=== PATIENT | female | born 1975 | race Hispanic/Latino ===

== ENCOUNTER → 2019-01-01 | Day surgery (SDC) | payer OTHER ==
--- NOTE | 2018-12-31 17:38 | Diagnostic Imaging Report ---
Exam: Chest radiograph Clinical History: Preoperative clearance Findings: The cardiomediastinal silhouette and lungs are normal. The regional skeleton and soft tissue are unremarkable. There is no evidence of pleural effusion or pneumothorax. Impression: No radiographic evidence of acute cardiopulmonary disease. Signed by: Dr. Herb Luna MD on 12/31/2018 5:35 PM
[~2019-01-01] MED LIST: ACETAMINOPHEN 1000 MG/100 ML 100 ML IV ONE; BUPIVACAINE HCL 0.5% INJ 30 ML VIAL INJ ONE; CEFAZOLIN SOD 1 GM/NS 50ML 50 ML IV ONE; DEXAMETHASONE SOD PHOS INJ 4 MG/ML VIAL ONE; DUEXIS 800-26.1 EACH PO; FENTANYL CITRATE/PF 100MCG/2 ML INJ ONE; HYDROMORPHONE 1MG/1ML INJ ONE; KETOROLAC TROMETHAMINE 30 MG/ML VIAL ONE; LIDOCAINE HCL 2% LOCAL INJ 5 ML SDV VIAL INJ ONE; METOPROLOL SUCC25 MG PO; MIDAZOLAM HCL 2 MG/2 ML VIAL ONE; NAPROXEN500 MG PO; NORCO 5-325 TA1 EACH PO; ONDANSETRON HCL INJ 2MG/ML 2ML 2 MG/ML VIAL ONE; PROPOFOL IV EMULSION 10 MG/ML 20 ML VIAL ONE; SEVOFLURANE INHAL SOLN 250 ML PEN BTL ONE
--- OUTSIDE RECORDS SUMMARY | 2019-01-01 05:10 | XMS REPORT | Continuity of Care Document ---
Author Author [employer] Direct Address Unknown Phone Unavailable Care Team Providers Care Electrical Subcontractor Name Role Phone [employer] Information fluid Operations Unavailable Unavailable Problems Problem Status Onset Date Classification Date Reported Comments Source R10.2 Active 10/05/2018 [facility] Radiculopathy, lumbosacral region 05/15/2018 05/17/2018 [facility] Other spondylosis, lumbosacral region 12/05/2017 12/07/2017 [facility] 2ND NIGHT - 19644 Active 08/01/2017 [facility] Other intervertebral disc displacement, lumbosacral region 02/07/2017 02/09/2017 [facility] FIRST [id number] Active 10/28/2016 [facility] Sacroiliitis, not elsewhere classified 03/23/2017 [facility] Anxiety (finding) Active Problem 06/09/2018 pt mother [place] and has cancer [facility] Backache (finding) Active Problem 06/09/2018 sacrioliac joint [facility] Sleep apnea (finding) Active Problem 06/09/2018 pt has not received a cpap machine does not have cpap machine still does not have a cpap machine Pt was recently diagnosed and does not have a cpap machine yet [facility] Low back pain 06/09/2018 [facility] Acid reflux (finding) Active Problem 06/09/2018 [facility] Gastroesophageal reflux disease (disorder) Active Problem 06/09/2018 [facility] Lumbar spondylosis (disorder) Active Problem 06/09/2018 [facility] Medications Medication Details Route Status Patient Instructions Ordering Provider Order Date Source Misc Medication 150 mL, Soln-IV, IV, Once, first dose 05/15/18 14:13:00 BRANCH CUSTOMER SERVICE REPRESENTATIVE, stop date 05/15/18 14:13:00 BRANCH CUSTOMER SERVICE REPRESENTATIVE Inactive 05/15/2018 [facility] Promethazine 12.5 mg=0.5 mL, Injection, IM, Once PRN for vomiting, first dose 05/15/18 14:08:00 BRANCH CUSTOMER SERVICE REPRESENTATIVE Inactive 05/15/2018 [facility] Diphenhydramine 25 mg=0.5 mL, Injection, IV Push, Once PRN for itching, first dose 05/15/18 14:08:00 BRANCH CUSTOMER SERVICE REPRESENTATIVE Inactive 05/15/2018 [facility] Ondansetron 4 mg=2 mL, Injection, IV Push, q15min PRN for nausea, order duration: 2 doses, first dose 05/15/18 14:08:00 BRANCH CUSTOMER SERVICE REPRESENTATIVE, stop date Limited # of times Inactive 05/15/2018 [facility] Levalbuterol 0.21 MG/ML Inhalant Solution [Xopenex] 0.63 mg=3 mL, Soln, NEB, Once PRN for wheezing, first dose 05/15/18 14:08:00 BRANCH CUSTOMER SERVICE REPRESENTATIVE Inactive 05/15/2018 [facility] Saline Lock Flush 10 mL, Soln, IV Push, As Indicated PRN for flush, first dose 05/15/18 14:08:00 BRANCH CUSTOMER SERVICE REPRESENTATIVE Inactive 05/15/2018 [facility] LR 1,000 mL 1,000 mL, IV, 75 mL/hr, start date 05/15/18 14:08:00 BRANCH CUSTOMER SERVICE REPRESENTATIVE Inactive 05/15/2018 [facility] midazolam 1 mg=1 mL, Injection, IV, Once, first dose 05/15/18 14:04:00 BRANCH CUSTOMER SERVICE REPRESENTATIVE, stop date 05/15/18 14:04:00 BRANCH CUSTOMER SERVICE REPRESENTATIVE Inactive 05/15/2018 [facility] midazolam 1 mg=1 mL, Injection, IV, Once, first dose 05/15/18 14:01:00 BRANCH CUSTOMER SERVICE REPRESENTATIVE, stop date 05/15/18 14:01:00 BRANCH CUSTOMER SERVICE REPRESENTATIVE Inactive 05/15/2018 [facility] midazolam 1 mg=1 mL, Injection, IV, Once, first dose 05/15/18 13:57:00 BRANCH CUSTOMER SERVICE REPRESENTATIVE, stop date 05/15/18 13:57:00 BRANCH CUSTOMER SERVICE REPRESENTATIVE Inactive 05/15/2018 [facility] fentaNYL 50 mcg=1 mL, Injection, IV, Once, first dose 05/15/18 13:57:00 BRANCH CUSTOMER SERVICE REPRESENTATIVE, stop date 05/15/18 13:57:00 BRANCH CUSTOMER SERVICE REPRESENTATIVE Inactive 05/15/2018 [facility] midazolam 1 mg=1 mL, Injection, IV, Once, first dose 05/15/18 13:52:00 BRANCH CUSTOMER SERVICE REPRESENTATIVE, stop date 05/15/18 13:52:00 BRANCH CUSTOMER SERVICE REPRESENTATIVE Inactive 05/15/2018 [facility] fentaNYL 50 mcg=1 mL, Injection, IV, Once, first dose 05/15/18 13:52:00 BRANCH CUSTOMER SERVICE REPRESENTATIVE, stop date 05/15/18 13:52:00 BRANCH CUSTOMER SERVICE REPRESENTATIVE Inactive 05/15/2018 [facility] Lidocaine 2% 0.2 mL IV Start [[place]] 0.2 mL, Injection, Subcutaneous, Once PRN for other (see comment), first dose 05/15/18 12:58:00 BRANCH CUSTOMER SERVICE REPRESENTATIVE Inactive 05/15/2018 [facility] LR 1,000 mL 1,000 mL, IV, 30 mL/hr, start date 05/15/18 12:58:00 BRANCH CUSTOMER SERVICE REPRESENTATIVE Inactive 05/15/2018 [facility] Pepcid 20 mg, Oral, Daily Active 05/11/2018 [facility] Cyclobenzaprine hydrochloride 10 MG Oral Tablet [Flexeril] 10 mg=1 tabs, Oral, As Indicated, PRN for spasm, # 30 tabs, muscle spasm Active 05/11/2018 [facility] terbinafine 250 MG Oral Tablet 250 mg=1 tabs, Oral, Daily, toenail fungus Active 05/11/2018 [facility] LR 1,000 mL 1,000 mL, IV, 75 mL/hr, start date 12/05/17 13:40:00 CDT Inactive 12/05/2017 [facility] Saline Lock Flush 10 mL, Soln, IV Push, As Indicated PRN for flush, first dose 12/05/17 13:40:00 CDT Inactive 12/05/2017 [facility] Misc Medication 200 mL, Soln-IV, IV, Once, first dose 12/05/17 13:38:00 CDT, stop date 12/05/17 13:38:00 CDT Inactive 12/05/2017 [facility] propofol 50 mg=5 mL, Emulsion, IV, Once, first dose 12/05/17 13:26:00 CDT, stop date 12/05/17 13:26:00 CDT Inactive 12/05/2017 [facility] propofol 50 mg=5 mL, Emulsion, IV, Once, first dose 12/05/17 13:20:00 CDT, stop date 12/05/17 13:20:00 CDT Inactive 12/05/2017 [facility] propofol 50 mg=5 mL, Emulsion, IV, Once, first dose 12/05/17 13:11:00 CDT, stop date 12/05/17 13:11:00 CDT Inactive 12/05/2017 [facility] propofol 50 mg=5 mL, Emulsion, IV, Once, first dose 12/05/17 13:06:00 CDT, stop date 12/05/17 13:06:00 CDT Inactive 12/05/2017 [facility] lidocaine 3 mL, Injection, IV, Once, first dose 12/05/17 13:06:00 CDT, stop date 12/05/17 13:06:00 CDT Inactive 12/05/2017 [facility] fentaNYL 50 mcg=1 mL, Injection, IV, Once, first dose 12/05/17 13:05:00 CDT, stop date 12/05/17 13:05:00 CDT Inactive 12/05/2017 [facility] midazolam 2 mg=2 mL, Injection, IV, Once, first dose 12/05/17 13:05:00 CDT, stop date 12/05/17 13:05:00 CDT Inactive 12/05/2017 [facility] fentaNYL 50 mcg=1 mL, Injection, IV, Once, first dose 12/05/17 12:59:00 CDT, stop date 12/05/17 12:59:00 CDT Inactive 12/05/2017 [facility] midazolam 3 mg=3 mL, Injection, IV, Once, first dose 12/05/17 12:59:00 CDT, stop date 12/05/17 12:59:00 CDT Inactive 12/05/2017 [facility] Lidocaine 2% 0.2 mL IV Start [[place]] 0.2 mL, Injection, Subcutaneous, Once PRN for other (see comment), first dose 12/05/17 12:17:00 CDT Inactive 12/05/2017 [facility] LR 1,000 mL 1,000 mL, IV, 30 mL/hr, start date 12/05/17 12:17:00 CDT Inactive 12/05/2017 [facility] Misc Medication 300 mL, Soln-IV, IV, Once, first dose 09/19/17 13:23:00 CDT, stop date 09/19/17 13:23:00 CDT Inactive 09/19/2017 [facility] midazolam 1 mg=1 mL, Injection, IV, Once, first dose 09/19/17 13:13:00 CDT, stop date 09/19/17 13:13:00 CDT Inactive 09/19/2017 [facility] midazolam 1 mg=1 mL, Injection, IV, Once, first dose 09/19/17 13:09:00 CDT, stop date 09/19/17 13:09:00 CDT Inactive 09/19/2017 [facility] midazolam 1 mg=1 mL, Injection, IV, Once, first dose 09/19/17 13:00:00 CDT, stop date 09/19/17 13:00:00 CDT Inactive 09/19/2017 [facility] midazolam 1 mg=1 mL, Injection, IV, Once, first dose 09/19/17 12:49:00 CDT, stop date 09/19/17 12:49:00 CDT Inactive 09/19/2017 [facility] Doxycycline Monohydrate 100 MG Oral Capsule 100 mg=1 caps, Oral, BID, 0 Refill(s) No Longer Active 09/19/2017 [facility] celecoxib 200 MG Oral Capsule [Celebrex] 200 mg=1 caps, Oral, Daily, 0 Refill(s) Active 09/19/2017 [facility] Lidocaine 2% 0.2 mL IV Start [[place]] 0.2 mL, Injection, Subcutaneous, Once PRN for other (see comment), first dose 09/19/17 11:45:00 CDT Inactive 09/19/2017 [facility] LR 1,000 mL 1,000 mL, IV, 30 mL/hr, start date 09/19/17 11:45:00 CDT Inactive 09/19/2017 [facility] LR 1,000 mL 1,000 mL, IV, 75 mL/hr, start date 08/22/17 13:15:00 CDT Inactive 08/22/2017 [facility] Saline Lock Flush 10 mL, Soln, IV Push, As Indicated PRN for flush, first dose 08/22/17 13:15:00 CDT Inactive 08/22/2017 [facility] Dilaudid 0.5 mg=0.5 mL, Injection, IV Push, q10min PRN for pain severe (7-10), first dose 08/22/17 13:15:00 CDT Inactive 08/22/2017 [facility] Misc Medication 300 mL, Soln-IV, IV, Once, first dose 08/22/17 12:46:00 CDT, stop date 08/22/17 12:46:00 CDT Inactive 08/22/2017 [facility] propofol 30 mg=3 mL, Emulsion, IV, Once, first dose 08/22/17 12:37:00 CDT, stop date 08/22/17 12:37:00 CDT Inactive 08/22/2017 [facility] lidocaine 1 mL, Injection, IV, Once, first dose 08/22/17 12:37:00 CDT, stop date 08/22/17 12:37:00 CDT Inactive 08/22/2017 [facility] midazolam 1 mg=1 mL, Injection, IV, Once, first dose 08/22/17 12:37:00 CDT, stop date 08/22/17 12:37:00 CDT Inactive 08/22/2017 [facility] midazolam 2 mg=2 mL, Injection, IV, Once, first dose 08/22/17 12:33:00 CDT, stop date 08/22/17 12:33:00 CDT Inactive 08/22/2017 [facility] midazolam 2 mg=2 mL, Injection, IV, Once, first dose 08/22/17 12:30:00 CDT, stop date 08/22/17 12:30:00 CDT Inactive 08/22/2017 [facility] LR 1,000 mL 1,000 mL, IV, 30 mL/hr, start date 08/22/17 10:56:00 CDT Inactive 08/22/2017 [facility] Lidocaine 2% 0.2 mL IV Start [[place]] 0.2 mL, Injection, Subcutaneous, Once PRN for other (see comment), first dose 08/22/17 10:56:00 CDT Inactive 08/22/2017 [facility] 24 HR Naproxen 500 MG Extended Release Tablet 500 mg=1 tabs, Oral, As Indicated, PRN for pain, Back Pain Active 08/18/2017 [facility] Sucralfate 1000 MG Oral Tablet [Carafate] 1 gm=1 tabs, Oral, BID, GERD No Longer Active 08/18/2017 [facility] Omeprazole 40 MG Enteric Coated Capsule 40 mg=1 caps, Oral, Daily, Acide Reflux Active 08/18/2017 [facility] Diphenhydramine 25 mg=0.5 mL, Injection, IV Push, Once PRN for itching, first dose 03/21/17 12:16:00 BRANCH CUSTOMER SERVICE REPRESENTATIVE Inactive 03/21/2017 [facility] Promethazine 12.5 mg=0.5 mL, Injection, IM, Once PRN for severe nausea, first dose 03/21/17 12:16:00 BRANCH CUSTOMER SERVICE REPRESENTATIVE Inactive 03/21/2017 [facility] LR 1,000 mL 1,000 mL, IV, 75 mL/hr, start date 03/21/17 12:16:00 BRANCH CUSTOMER SERVICE REPRESENTATIVE Inactive 03/21/2017 [facility] Saline Lock Flush 10 mL, Soln, IV Push, As Indicated PRN for flush, first dose 03/21/17 12:16:00 BRANCH CUSTOMER SERVICE REPRESENTATIVE Inactive 03/21/2017 [facility] Ondansetron 4 mg=2 mL, Injection, IV Push, q15min PRN for nausea/vomiting, order duration: 2 doses, first dose 03/21/17 12:16:00 BRANCH CUSTOMER SERVICE REPRESENTATIVE, stop date Limited # of times Inactive 03/21/2017 [facility] Misc Medication 500 mL, Soln-IV, IV, Once, first dose 03/21/17 12:09:00 BRANCH CUSTOMER SERVICE REPRESENTATIVE, stop date 03/21/17 12:09:00 BRANCH CUSTOMER SERVICE REPRESENTATIVE Inactive 03/21/2017 [facility] midazolam 2 mg=2 mL, Injection, IV, Once, first dose 03/21/17 12:01:00 BRANCH CUSTOMER SERVICE REPRESENTATIVE, stop date 03/21/17 12:01:00 BRANCH CUSTOMER SERVICE REPRESENTATIVE Inactive 03/21/2017 [facility] midazolam 1 mg=1 mL, Injection, IV, Once, first dose 03/21/17 11:58:00 BRANCH CUSTOMER SERVICE REPRESENTATIVE, stop date 03/21/17 11:58:00 BRANCH CUSTOMER SERVICE REPRESENTATIVE Inactive 03/21/2017 [facility] fentaNYL 50 mcg=1 mL, Injection, IV, Once, first dose 03/21/17 11:58:00 BRANCH CUSTOMER SERVICE REPRESENTATIVE, stop date 03/21/17 11:58:00 BRANCH CUSTOMER SERVICE REPRESENTATIVE Inactive 03/21/2017 [facility] midazolam 1 mg=1 mL, Injection, IV, Once, first dose 03/21/17 11:55:00 BRANCH CUSTOMER SERVICE REPRESENTATIVE, stop date 03/21/17 11:55:00 BRANCH CUSTOMER SERVICE REPRESENTATIVE Inactive 03/21/2017 [facility] fentaNYL 50 mcg=1 mL, Injection, IV, Once, first dose 03/21/17 11:55:00 BRANCH CUSTOMER SERVICE REPRESENTATIVE, stop date 03/21/17 11:55:00 BRANCH CUSTOMER SERVICE REPRESENTATIVE Inactive 03/21/2017 [facility] Cyclobenzaprine hydrochloride 10 MG Oral Tablet 10 mg=1 tabs, Oral, As Indicated, PRN for spasm, # 30 tabs, 0 Refill(s) No Longer Active 03/21/2017 [facility] Lidocaine 2% 0.2 mL IV Start [[place]] 0.2 mL, Injection, Subcutaneous, Once PRN for other (see comment), first dose 03/21/17 10:20:00 BRANCH CUSTOMER SERVICE REPRESENTATIVE Inactive 03/21/2017 [facility] LR 1,000 mL 1,000 mL, IV, 30 mL/hr, start date 03/21/17 10:20:00 BRANCH CUSTOMER SERVICE REPRESENTATIVE Inactive 03/21/2017 [facility] Vitamin D2 50,000 IntUnit, Oral, qThursday, 0 Refill(s), supplement No Longer Active 03/10/2017 [facility] steroid pack steroid pack, See Instructions, Pt inst by Dr Price to start steroid pack on 02-08-17, 0 Refill(s), sacroiliac joint pain No Longer Active 03/10/2017 [facility] Saline Lock Flush 10 mL, Soln, IV Push, As Indicated PRN for flush, first dose 02/07/17 11:38:00 CDT Inactive 02/07/2017 [facility] LR 1,000 mL 1,000 mL, IV, 75 mL/hr, start date 02/07/17 11:38:00 CDT Inactive 02/07/2017 [facility] Ondansetron 4 mg=2 mL, Injection, IV Push, q15min PRN for nausea/vomiting, order duration: 2 doses, first dose 02/07/17 11:38:00 CDT, stop date Limited # of times Inactive 02/07/2017 [facility] Promethazine 12.5 mg=0.5 mL, Injection, IM, Once PRN for severe nausea, first dose 02/07/17 11:38:00 CDT Inactive 02/07/2017 [facility] Diphenhydramine 25 mg=0.5 mL, Injection, IV Push, Once PRN for itching, first dose 02/07/17 11:38:00 CDT Inactive 02/07/2017 [facility] Misc Medication 300 mL, Soln-IV, IV, Once, first dose 02/07/17 11:31:00 CDT, stop date 02/07/17 11:31:00 CDT Inactive 02/07/2017 [facility] fentaNYL 50 mcg=1 mL, Injection, IV, Once, first dose 02/07/17 11:18:00 CDT, stop date 02/07/17 11:18:00 CDT Inactive 02/07/2017 [facility] midazolam 1 mg=1 mL, Injection, IV, Once, first dose 02/07/17 11:18:00 CDT, stop date 02/07/17 11:18:00 CDT Inactive 02/07/2017 [facility] fentaNYL 50 mcg=1 mL, Injection, IV, Once, first dose 02/07/17 11:13:00 CDT, stop date 02/07/17 11:13:00 CDT Inactive 02/07/2017 [facility] midazolam 1 mg=1 mL, Injection, IV, Once, first dose 02/07/17 11:13:00 CDT, stop date 02/07/17 11:13:00 CDT Inactive 02/07/2017 [facility] Lidocaine 2% 0.2 mL IV Start [[facility]] 0.2 mL, Injection, Subcutaneous, Once PRN for other (see comment), first dose 02/07/17 11:09:00 CDT Inactive 02/07/2017 [facility] LR 1,000 mL 1,000 mL, IV, 30 mL/hr, start date 02/07/17 11:09:00 CDT Inactive 02/07/2017 [facility] meloxicam 7.5 MG Oral Tablet 7.5 mg=1 tabs, Oral, Daily, 0 Refill(s), pain No Longer Active 01/27/2017 [facility] Cyclobenzaprine hydrochloride 10 MG Oral Tablet 10 mg=1 tabs, Oral, TID, PRN for spasm, # 30 tabs, 0 Refill(s), pain No Longer Active 01/27/2017 [facility] Acetaminophen 325 MG / Hydrocodone Bitartrate 10 MG Oral Tablet [[place] 10/325] 1 tabs, Oral, q6hr, PRN as needed for pain, 0 Refill(s), pain No Longer Active 01/27/2017 [facility] gabapentin 300 MG Oral Capsule 300 mg=1 caps, Oral, TID, 0 Refill(s), pain No Longer Active 01/27/2017 [facility] Allergies, Adverse Reactions, Alerts Substance Category Reaction Severity Reaction type Status Date Reported Comments Source traMADol Assertion Numbness of face (finding) Drug allergy Active [facility] No Known Medication Allergies Assertion Drug allergy [facility] Immunizations No Data Provided for This Section Results Order Name Results Value Reference Range Date Interpretation Comments Source LABORATORY urine beta hcg Negative, Control Present (05/15/18 1:04 PM) 05/15/2018 [facility] LABORATORY urine beta hcg Negative, Control Present (12/05/17 12:25 PM) 12/05/2017 [facility] LABORATORY urine beta hcg Negative, Control Present (09/19/17 11:45 AM) 09/19/2017 [facility] LABORATORY urine beta hcg Negative, Control Present (08/22/17 11:20 AM) 08/22/2017 [facility] LABORATORY urine beta hcg Negative, Control Present (03/21/17 10:43 AM) 03/21/2017 [facility] Reports No Data Provided for This Section Diagnostic Reports Report Value Date Source Pelvis w Pelvis Transvaginal US Patient Name: ESPERANZA MILLIGAN : 1975; Age: 43 years Female MR: [id number] Study: Pelvis w Pelvis Transvaginal US 10/16/2018 11:44 CDT Clinical Indication: - pelvic pain. COMPARISON: None US PELVIS Technique: Grayscale, color and Doppler transabdominal and transvaginal imaging of the pelvis was performed with standard technique. Endovaginal imaging was used for better evaluation of the endometrium and adnexal regions. Last menstrual period is 09/09/2018. FINDINGS: TRANSABDOMINAL AND ENDOVAGINAL PELVIC ULTRASOUND: UTERUS: The transabdominal pelvic ultrasound evaluation of the uterus demonstrates that the anteverted uterus measures 10.4 x 4.1 x 4.4 cm in size. The endometrial stripe measures 8 mm in thickness. There are nabothian cysts. OVARIES: The sonographic images demonstrate that the right ovary measures 3.1 x 2.4 x 2.8 cm and the left ovary measures 3.4 x 1.7 x 2.1 cm. There is a right ovarian simple cyst measuring 1.6 cm. Small left follicles. There are no adnexal masses. The Doppler images show normal bilateral ovarian blood flow. OTHER FINDINGS: The sonographic images demonstrate no free fluid in the pelvic cul-de-sac. IMPRESSION: Normal pelvic and transvaginal ultrasound. SL: [id number] 10/16/2018 [facility] Breast Mammo Scrn YAO incl CAD MA BILATERAL DIGITAL SCREENING MAMMOGRAM WITH CAD: 10/16/2018 CLINICAL: /Routine. Current study was evaluated with a Computer Aided Detection (CAD) system. COMPARISON:Exam is read without the benefit of comparison films. Facility where the patient states her prior mammograms were performed are outside of the [place] TECHNIQUE: Mammographic views were obtained using digital acquisition. [employer] Version 1.3 was utilized for computer aided detection. FINDINGS: The tissue of both breasts is heterogeneously dense, which could obscure detection of small masses. Benign appearing densities are noted in both breasts. There are benign calcifications in the left breast. No significant masses, calcifications, or other findings are seen in either breast. IMPRESSION: BENIGN RECOMMENDATION:There is no mammographic evidence of malignancy. A 1 year screening mammogram is recommended.(10/17/2019) SUMMARY: Prior mammograms would be of added benefit to document half-way stability. This aids in establishing benignity. The patient should make additional efforts to locate her prior exams. An addendum will be made if additional films are provided. This exam was interpreted at [id number] for [facility]. Mychal de luna/andi:10/16/2018 11:33:18 Machine Precision Etcher(s): Myra Sunshine, [facility] letter sent: BI-RADS 1/2 Dense Mammogram BI-RADS: 2 Benign 10/16/2018 [facility] Consultation Notes No Data Provided for This Section Discharge Summaries No Data Provided for This Section History and Physicals No Data Provided for This Section Vital Signs Vital Sign Value Date Comments Source Peripheral Pulse Rate 87 05/15/2018 [facility] Systolic (mm Hg) 115 05/15/2018 [facility] Diastolic (mm Hg) 77 05/15/2018 [facility] Respitory Rate 18 05/15/2018 [facility] Systolic (mm Hg) 111 05/15/2018 [facility] Diastolic (mm Hg) 72 05/15/2018 [facility] Respitory Rate 16 05/15/2018 [facility] Heart Rate 91 05/15/2018 [facility] Systolic (mm Hg) 116 05/15/2018 [facility] Diastolic (mm Hg) 76 05/15/2018 [facility] Respitory Rate 16 05/15/2018 [facility] Heart Rate 81 05/15/2018 [facility] Temperature Oral (F) 36.7 Margret 05/15/2018 [facility] Heart Rate 86 05/15/2018 [facility] Temperature Oral (F) 37 Marrget 05/15/2018 [facility] Weight Measured 75.37 05/15/2018 [facility] Height 157 cm 05/15/2018 [facility] Peripheral Pulse Rate 90 05/15/2018 [facility] Height 157 cm 05/11/2018 [facility] Weight Measured 75.3 05/11/2018 [facility] Systolic (mm Hg) 120 12/05/2017 [facility] Diastolic (mm Hg) 57 12/05/2017 [facility] Peripheral Pulse Rate 78 12/05/2017 [facility] Respitory Rate 20 12/05/2017 [facility] Systolic (mm Hg) 119 12/05/2017 [facility] Diastolic (mm Hg) 57 12/05/2017 [facility] Respitory Rate 20 12/05/2017 [facility] Heart Rate 76 12/05/2017 [facility] Systolic (mm Hg) 114 12/05/2017 [facility] Diastolic (mm Hg) 64 12/05/2017 [facility] Respitory Rate 16 12/05/2017 [facility] Heart Rate 77 12/05/2017 [facility] Heart Rate 98 12/05/2017 [facility] Temperature Oral (F) 36.6 Margret 12/05/2017 [facility] Weight Measured 75.3 12/05/2017 [facility] Height 157 cm 12/05/2017 [facility] Temperature Oral (F) 37 Margret 12/05/2017 [facility] Peripheral Pulse Rate 79 12/05/2017 [facility] Height 157 cm 12/01/2017 [facility] Weight Measured 75.3 12/01/2017 [facility] Peripheral Pulse Rate 95 09/19/2017 [facility] Respitory Rate 16 09/19/2017 [facility] Systolic (mm Hg) 115 09/19/2017 [facility] Diastolic (mm Hg) 74 09/19/2017 [facility] Heart Rate 90 09/19/2017 [facility] Respitory Rate 17 09/19/2017 [facility] Systolic (mm Hg) 118 09/19/2017 [facility] Diastolic (mm Hg) 75 09/19/2017 [facility] Systolic (mm Hg) 118 09/19/2017 [facility] Diastolic (mm Hg) 73 09/19/2017 [facility] Respitory Rate 24 09/19/2017 [facility] Heart Rate 80 09/19/2017 [facility] Heart Rate 80 09/19/2017 [facility] Temperature Oral (F) 36.5 Margret 09/19/2017 [facility] Peripheral Pulse Rate 85 09/19/2017 [facility] Temperature Oral (F) 37.0 Margret 09/19/2017 [facility] Height 157 cm 09/19/2017 [facility] Weight Measured 75.3 09/19/2017 [facility] Weight Measured 75.3 09/15/2017 [facility] Height 157 cm 09/15/2017 [facility] Respitory Rate 16 08/22/2017 [facility] Peripheral Pulse Rate 86 08/22/2017 [facility] Systolic (mm Hg) 125 08/22/2017 [facility] Diastolic (mm Hg) 81 08/22/2017 [facility] Respitory Rate 16 08/22/2017 [facility] Heart Rate 90 08/22/2017 [facility] Systolic (mm Hg) 130 08/22/2017 [facility] Diastolic (mm Hg) 78 08/22/2017 [facility] Systolic (mm Hg) 122 08/22/2017 [facility] Diastolic (mm Hg) 78 08/22/2017 [facility] Heart Rate 97 08/22/2017 [facility] Respitory Rate 16 08/22/2017 [facility] Heart Rate 100 08/22/2017 [facility] Temperature Oral (F) 36.9 Margret 08/22/2017 [facility] Temperature Oral (F) 36.8 Margret 08/22/2017 [facility] Weight Measured 75.3 08/22/2017 [facility] Height 157 cm 08/22/2017 [facility] Peripheral Pulse Rate 89 08/22/2017 [facility] Height 157 cm 08/18/2017 [facility] Weight Measured 75.30 08/18/2017 [facility] Respitory Rate 17 03/21/2017 [facility] Systolic (mm Hg) 127 03/21/2017 [facility] Diastolic (mm Hg) 77 03/21/2017 [facility] Peripheral Pulse Rate 81 03/21/2017 [facility] Systolic (mm Hg) 135 03/21/2017 [facility] Diastolic (mm Hg) 87 03/21/2017 [facility] Heart Rate 87 03/21/2017 [facility] Respitory Rate 14 03/21/2017 [facility] Respitory Rate 12 03/21/2017 [facility] Heart Rate 86 03/21/2017 [facility] Systolic (mm Hg) 134 03/21/2017 [facility] Diastolic (mm Hg) 85 03/21/2017 [facility] Temperature Oral (F) 36.7 Margret 03/21/2017 [facility] Heart Rate 92 03/21/2017 [facility] Weight Measured 77.2 03/21/2017 [facility] Peripheral Pulse Rate 84 03/21/2017 [facility] Temperature Oral (F) 36.7 Margret 03/21/2017 [facility] Height 157 cm 03/21/2017 [facility] Height 157 cm 03/10/2017 [facility] Weight Measured 77.2 03/10/2017 [facility] Respitory Rate 16 02/07/2017 [facility] Systolic (mm Hg) 119 02/07/2017 [facility] Diastolic (mm Hg) 75 02/07/2017 [facility] Heart Rate 89 02/07/2017 [facility] Heart Rate 87 02/07/2017 [facility] Systolic (mm Hg) 128 02/07/2017 [facility] Diastolic (mm Hg) 75 02/07/2017 [facility] Respitory Rate 16 02/07/2017 [facility] Respitory Rate 16 02/07/2017 [facility] Systolic (mm Hg) 130 02/07/2017 [facility] Diastolic (mm Hg) 81 02/07/2017 [facility] Heart Rate 98 02/07/2017 [facility] Temperature Oral (F) 36.8 Margret 02/07/2017 [facility] Height 157 cm 02/07/2017 [facility] Peripheral Pulse Rate 98 02/07/2017 [facility] Temperature Oral (F) 37 Margret 02/07/2017 [facility] Weight Measured 77.2 02/07/2017 [facility] Height 157 cm 01/27/2017 [facility] Weight Measured 77.2 01/27/2017 [facility] Encounters Location Location Details Encounter Type Encounter Number Reason For Visit Attending Provider ADM Date DC Date Status Source [facility] Outpatient [id number] Rosa Albert 02/07/2017 02/07/2017 [facility] Outpatient [id number] Rosa Albert 02/07/2017 02/07/2017 [facility] Outpatient [id number] Rosa Albert 03/21/2017 03/21/2017 Discharged [facility] Outpatient [id number] Rosa Albert 03/21/2017 03/21/2017 [facility] Outpatient [id number] Carter Gotti 08/10/2017 08/10/2017 [facility] Outpatient [id number] Rosa Albert 08/22/2017 08/22/2017 Discharged [facility] Outpatient [id number] Rosa Albert 08/22/2017 08/22/2017 [facility] Outpatient [id number] Rosa Albert 09/19/2017 09/19/2017 Active [facility] Outpatient [id number] Rosa Ablert 09/19/2017 09/19/2017 [facility] Outpatient [id number] Rosa Albert 12/05/2017 12/05/2017 Active [facility] Outpatient [id number] Rosa Albert 12/05/2017 12/05/2017 [facility] Outpatient [id number] Rosa Albert 05/15/2018 05/15/2018 Active [facility] Outpatient [id number] Rosa Albert 05/15/2018 05/15/2018 [facility] Outpatient [id number] Wendyammad Etminan 06/07/2018 06/07/2018 [facility] [facility] [id number] Mohammad Etminan 06/07/2018 06/08/2018 [facility] Outpatient [id number] Christiana Amayaambi 10/16/2018 10/17/2018 [facility] Procedures Procedure Code Date Perfomer Comments Source INJ.CATH PLACE OF DIAG/THERA.SUBSTANCE EPIDURAL OR SUBARACHNOID LUMBAR/SACRAL 92380 (Right)<sup>1</sup> 05/15/2018 auto-populated from documented surgical case [facility] DESTRUCTION BY NEUROLYTIC AGENT PARAVERTEBRAL FACET JT NERVE W/ IMAGE LUMB/SACRAL EACH 61501 (Left)<sup>1</sup> 12/05/2017 auto-populated from documented surgical case [facility] DESTRUCTION BY NEUROLYTIC AGT PARARVERT FACET JT W/IMAGE LUM/SAC SINGLE JT 30529 (Left, L5, S1)<sup>2</sup> 12/05/2017 auto-populated from documented surgical case [facility] FLUOROSCOPIC GUIDANCE AND LOCALIZATION OF NEEDLE OR CATHETER TIP; SPINE INJ. 07754 (Left)<sup>3</sup> 12/05/2017 auto-populated from documented surgical case [facility] FLUOROSCOPIC GUIDANCE AND LOCALIZATION OF NEEDLE OR CATHETER TIP; SPINE INJ. 73949 (Left)<sup>1</sup> 09/19/2017 auto-populated from documented surgical case [facility] INJ DIAG/THERAPEUTIC AGENT PARAVERTEBRAL FACET JOINT W/ IMAGE GUIDANCE LUMBAR/SACRAL 2ND LEVEL 73322 (Left)<sup>2</sup> 09/19/2017 auto-populated from documented surgical case [facility] INJ DIAGNOSTIC/THERAPEUTIC AGENT PARAVERTEBRAL FACET JOINT W/ IMAGE GUIDANCE LUMBAR/SACRAL 76129 (Left)<sup>3</sup> 09/19/2017 auto-populated from documented surgical case [facility] INJECTION DIAGNOSTIC OR THERAPEUTIC AGENT W/ IMAGE GUIDANCE LUMBAR/SACRAL 3RD LEVEL 26513 (Left)<sup>4</sup> 09/19/2017 auto-populated from documented surgical case [facility] FLUOROSCOPIC GUIDANCE AND LOCALIZATION OF NEEDLE OR CATHETER TIP; SPINE INJ. 88151 (Right)<sup>1</sup> 08/22/2017 auto-populated from documented surgical case [facility] INJ DIAG/THERAPEUTIC AGENT PARAVERTEBRAL FACET JOINT W/ IMAGE GUIDANCE LUMBAR/SACRAL 2ND LEVEL 11339 (Right)<sup>2</sup> 08/22/2017 auto-populated from documented surgical case [facility] INJ DIAGNOSTIC/THERAPEUTIC AGENT PARAVERTEBRAL FACET JOINT W/ IMAGE GUIDANCE LUMBAR/SACRAL 33896 (Right)<sup>3</sup> 08/22/2017 auto-populated from documented surgical case [facility] INJECTION DIAGNOSTIC OR THERAPEUTIC AGENT W/ IMAGE GUIDANCE LUMBAR/SACRAL 3RD LEVEL 10758 (Right)<sup>4</sup> 08/22/2017 auto-populated from documented surgical case [facility] IUD removal 05/08/2017 [facility] BLOCK SACROILIAC JOINT 86590 (Left)<sup>1</sup> 03/21/2017 auto-populated from documented surgical case [facility] FLUOROSCOPIC GUIDANCE AND LOCALIZATION OF NEEDLE OR CATHETER TIP; SPINE INJ. 64238 (Left)<sup>2</sup> 03/21/2017 auto-populated from documented surgical case [facility] INJ.CATH PLACE OF DIAG/THERA.SUBSTANCE EPIDURAL OR SUBARACHNOID LUMBAR/SACRAL 59190 (Right)<sup>2</sup> 02/07/2017 auto-populated from documented surgical case [facility] fibroid removed 03/08/2016 [facility] sinus sugery 09/05/2014 [facility] Cholecystectomy [id number] 05/08/2008 [facility] Assessment and Plan No Data Provided for This Section Plan of Care No Data Provided for This Section Social History Social History Date Source Social History TypeResponse Smoking Status Never smoker entered on: 01/27/17 01/27/2017 [facility] Social History TypeResponse Smoking Status Never smoker; Exposure to Tobacco Smoke None; Cigarette Smoking Last 365 Days No; Reg Smoking Cessation Counseling No entered on: 01/28/15 01/28/2015 [facility] Family History No Data Provided for This Section Advance Directives No Data Provided for This Section Functional Status No Data Provided for This Section
--- OUTSIDE RECORDS SUMMARY | 2019-01-01 05:11 | XMS REPORT | Summary of Care ---
Author Author DMITRI Rojas, IRVING Martinez Unknown Address Unknown Phone Unavailable Care Team Providers Care Fortune Cookie Maker Name Role Phone CHERRI Rojas, TRINY Urias Unavailable IRVING RIZVI M.D. Unavailable Unavailable LELO GATES MD Unavailable TRINY PRICE MD Unavailable Unavailable MARCIE GAN MD Unavailable Unavailable Unavailable Unavailable Functional Status Name Dates Details Functional status health issues are not documented Status: Name Dates Details Cognitive status health issues are not documented Status: Problems Name Dates Details Never smoker Status: Active Scoliosis (737.30, M41.9) Status: Active Acquired spondylolisthesis of lumbosacral region (738.4, M43.17) Status: Active Vitamin deficiency (269.2, E56.9) Status: Active Bilateral sacroiliitis (720.2, M46.1) Status: Active Pain of left upper extremity (729.5, M79.602) Status: Active Paresthesia (782.0, R20.2) Status: Active Right shoulder pain, unspecified chronicity (719.41, M25.511) Status: Active Polyarthralgia (719.49, M25.50) Status: Active Fatigue (780.79, R53.83) Status: Active Lumbar herniated disc (722.10, M51.26) Status: Active Neck pain (723.1, M54.2) Status: Active Lower back pain (724.2, M54.5) Status: Active Lumbosacral radiculopathy (724.4, M54.17) Status: Active DDD (degenerative disc disease), lumbosacral (722.52, M51.37) Status: Active Myofascial pain syndrome (729.1, M79.18) Status: Active Piriformis syndrome of right side (355.0, G57.01) Status: Active Discogenic low back pain (724.2, M51.36) Status: Active Coccyx pain (724.79, M53.3) Status: Active Lumbar radiculopathy (724.4, M54.16) Status: Active DDD (degenerative disc disease), lumbar (722.52, M51.36) Status: Active Medications Name Dates Details predniSONE 20 MG Oral Tablet TAKE 1 TABLET DAILY. * Start : 26-Feb-2015 Active Gabapentin 300 MG Oral Capsule 1 po qhs for 5 days, bid for 5 days, then TID * Quantity: 90 Refills: 0 TRINY PRICE M.D. * Start : 05-Apr-2018 Active Cyclobenzaprine HCl - 10 MG Oral Tablet * Refills: 0 Active CeleBREX 200 MG Oral Capsule * Refills: 0 Active Naproxen TABS * Refills: 0 Active Allergies and Adverse Reactions Name Dates Details tramadol (Allergy) Status: Active Procedures Procedure Dates Details History of Treatment Not Available Completed History of Rhinoplasty Completed History of Uterine myomectomy Completed Immunization Name Dates Details Immunizations not documented Family History Name Dates Details Family history of malignant neoplasm (V16.9, Z80.9) Comments: Family History Status: Active Family history of cardiac disorder (V17.49, Z82.49) Comments: Family History Status: Active Social History Name Dates Details - Status: Name Dates Details Never smoker Never smoker Vital Signs Date Test Result Details No Known Vitals to report Results Date Description Value Details Results not documented Plan of Care Name Dates Details Planned Observations Planned Goals not documented Planned Encounters Physical Therapy Referral Interventions Provided Labs/Procedures/Imaging* [O] Xray SPINE LUMBOSACRAL 2 OR 3 VIEWS; Done: 25 Jul 2018 * XRAY Sacrum and coccyx series 39713; Done: 25 Jul 2018 Plan* COCCYGODYNIA * She presents with about a 2-month history of tailbone pain after a fall and about a 2-year history of low back pain after another fall. X-rays bar spine and coccyx are normal. Her recent lumbar MRI report comments on degenerative disc changes at L4-5 without disc herniation or stenosis. I recommended physical therapy and home exercises for her low back and that she visit with her pain management doctor, Dr. Price, for further treatment options. Instructions Name Dates Details Instructions not documented Encounters Appointment; TRINY PRICE M.D. Encounter Diagnosis: Problem not documented On: 29-Dec-2016 8:30 Appointment; MARCIE GAN M.D. Encounter Diagnosis: Problem not documented On: 01-Feb-2017 13:15 Appointment; TRINY PRICE M.D. Encounter Diagnosis: Problem not documented On: 07-Feb-2017 11:45 Appointment; TRINY PRICE M.D. Encounter Diagnosis: Problem not documented On: 21-Feb-2017 10:30 Appointment; TRINY PRICE M.D. Encounter Diagnosis: Problem not documented On: 22-Feb-2017 9:45 Appointment; MARCIE GAN M.D. Encounter Diagnosis: Problem not documented On: 24-Feb-2017 14:30 Appointment; TRINY PRICE M.D. Encounter Diagnosis: Problem not documented On: 07-Mar-2017 9:45 Appointment; TRINY PRICE M.D. Encounter Diagnosis: Problem not documented On: 21-Mar-2017 13:15 Appointment; TRINY PRICE M.D. Encounter Diagnosis: Problem not documented On: 05-Apr-2017 14:00 Appointment; TIRNY PRICE M.D. Encounter Diagnosis: Problem not documented On: 02-Aug-2017 15:00 Appointment; TRINY PRICE M.D. Encounter Diagnosis: Problem not documented On: 22-Aug-2017 13:30 Appointment; TRINY PRICE M.D. Encounter Diagnosis: Problem not documented On: 30-Aug-2017 14:45 Appointment; TRINY PRICE M.D. Encounter Diagnosis: Problem not documented On: 19-Sep-2017 11:45 Appointment; TRINY PRICE M.D. Encounter Diagnosis: Problem not documented On: 27-Sep-2017 15:30 Appointment; TRINY PRICE M.D. Encounter Diagnosis: Problem not documented On: 05-Dec-2017 12:30 Appointment; TRINY PRICE M.D. Encounter Diagnosis: Problem not documented On: 20-Dec-2017 15:30 Appointment; TRINY PRICE M.D. Encounter Diagnosis: Problem not documented On: 04-Apr-2018 14:45 Appointment; TRINY PRICE M.D. Encounter Diagnosis: Problem not documented On: 15-May-2018 12:30 Appointment; TRINY PRICE M.D. Encounter Diagnosis: Problem not documented On: 30-May-2018 14:00 Appointment; SHENA GUZMAN M.D. Encounter Diagnosis: Problem not documented On: 05-Jun-2018 14:30 Appointment; IRVING RIZVI M.D. Encounter Diagnosis: Problem not documented On: 25-Jul-2018 13:30
--- OUTSIDE RECORDS SUMMARY | 2019-01-01 05:11 | XMS REPORT | Summary of Care ---
Author Author [facility] Organization [facility] Address Unknown Phone Unavailable Encounter [facility] [id number] Date(s): 09/19/17 - 09/19/17 [facility] [address] [place], [place] [address] Discharge Diagnosis: Other spondylosis, lumbosacral region Discharge Disposition: Discharged to Home or Self Care Attending Physician: Rosa Price MD Admitting Physician: Rosa Price MD Vital Signs 1 2 3 Most recent to oldest [Reference Range]: 37.0 DegC (09/19/17 11:46 AM) Temperature Oral [35.8-37.3 DegC] 36.5 DegC (09/19/17 1:20 PM) Temperature Temporal Artery [36.3-37.8 DegC] 97.7 (09/19/17 1:20 PM) Temperature Temporal Fahrenheit 95 bpm (09/19/17 2:07 PM) 85 bpm (09/19/17 11:46 AM) Peripheral Pulse Rate [55-105 bpm] 90 bpm (09/19/17 1:40 PM) 80 bpm (09/19/17 1:30 PM) 80 bpm (09/19/17 1:20 PM) Heart Rate Monitored [60-100 bpm] 16 (09/19/17 2:07 PM) 17 (09/19/17 1:40 PM) 24 *HI* (09/19/17 1:30 PM) Respiratory Rate [12-20] 98 % (09/19/17 2:07 PM) 97 % (09/19/17 1:40 PM) 96 % (09/19/17 1:30 PM) SpO2 [90-100 %] 115/74 mmHg (09/19/17 2:07 PM) 118/75 mmHg (09/19/17 1:40 PM) 118/73 mmHg (09/19/17 1:30 PM) Blood Pressure [110-120/65-85 mmHg] 89.3 mmHg (09/19/17 1:40 PM) 88 mmHg (09/19/17 1:30 PM) 91 mmHg (09/19/17 1:20 PM) Mean Arterial Pressure, Cuff 157 cm (09/19/17 11:46 AM) 157 cm (09/15/17 2:10 PM) Height 157 cm (09/19/17 11:46 AM) 157 cm (09/15/17 2:10 PM) Height/Length Dosing 62 in (09/19/17 11:46 AM) 62 in (09/15/17 2:10 PM) Height Inches 75.3 kg (09/19/17 11:46 AM) 75.3 kg (09/15/17 2:10 PM) Weight 75.3 kg (09/19/17 11:46 AM) 75.3 kg (09/15/17 2:10 PM) Weight Dosing 166 lb (09/19/17 11:46 AM) 166 lb (09/15/17 2:10 PM) Weight Pounds 30.55 kg/m2 (09/19/17 11:46 AM) 30.55 kg/m2 (09/15/17 2:10 PM) Body Mass Index Problem List Condition Effective Dates Status Health Status Informant Acid Active reflux(Confirmed) Anxiety(Confirmed)1 Active Back Active pain(Confirmed)2 GERD - Active Gastro-esophageal reflux disease(Confirmed) Lumbar Active spondylosis(Confirme d) Sleep Active apnea(Confirmed)3, 4, 5 1pt mother [place] the [place] and has cancer 2sacrioliac joint 3does not have cpap machine 4still does not have a cpap machine 5Pt was recently diagnosed and does not have a cpap machine yet Allergies, Adverse Reactions, Alerts Substance Reaction Severity Status traMADol Numbness of face Active Medications Carafate 1 g oral tablet 1 gm=1 tabs, Oral, BID, GERD Start Date: 08/18/17 Stop Date: 09/19/17 Status: Discontinued CeleBREX 200 mg oral capsule 200 mg=1 caps, Oral, Daily, 0 Refill(s) Start Date: 09/19/17 Stop Date: 10/03/17 Status: Ordered cyclobenzaprine 10 mg oral tablet 10 mg=1 tabs, Oral, As Indicated, PRN for spasm, # 30 tabs, 0 Refill(s) Start Date: 03/21/17 Stop Date: 08/18/17 Status: Discontinued cyclobenzaprine 10 mg oral tablet 10 mg=1 tabs, Oral, TID, PRN for spasm, # 30 tabs, 0 Refill(s), pain Start Date: 01/27/17 Stop Date: 03/10/17 Status: Discontinued doxycycline monohydrate 100 mg oral capsule 100 mg=1 caps, Oral, BID, 0 Refill(s) Start Date: 09/19/17 Stop Date: 10/03/17 Status: Ordered gabapentin 300 mg oral capsule 300 mg=1 caps, Oral, TID, 0 Refill(s), pain Start Date: 01/27/17 Stop Date: 03/10/17 Status: Discontinued Lidocaine 2% 0.2 mL IV Start [[place]] 0.2 mL, Injection, Subcutaneous, Once PRN for other (see comment), first dose 11:45:00 CDT Start Date: 09/19/17 Stop Date: 09/19/17 Status: Discontinued LR 1,000 mL 1,000 mL, IV, 30 mL/hr, start date 09/19/17 11:45:00 CDT Start Date: 09/19/17 Stop Date: 09/19/17 Status: Discontinued meloxicam 7.5 mg oral tablet 7.5 mg=1 tabs, Oral, Daily, 0 Refill(s), pain Start Date: 01/27/17 Stop Date: 03/10/17 Status: Discontinued midazolam 1 mg=1 mL, Injection, IV, Once, first dose 09/19/17 13:09:00 CDT, stop date 09/05 09/22 13:09:00 CDT Start Date: 09/19/17 Stop Date: 09/19/17 Status: Completed midazolam 1 mg=1 mL, Injection, IV, Once, first dose 09/19/17 13:00:00 CDT, stop date 09/05 09/22 13:00:00 CDT Start Date: 09/19/17 Stop Date: 09/19/17 Status: Completed midazolam 1 mg=1 mL, Injection, IV, Once, first dose 09/19/17 12:49:00 CDT, stop date 09/05 09/22 12:49:00 CDT Start Date: 09/19/17 Stop Date: 09/19/17 Status: Completed midazolam 1 mg=1 mL, Injection, IV, Once, first dose 09/19/17 13:13:00 CDT, stop date 09/05 09/22 13:13:00 CDT Start Date: 09/19/17 Stop Date: 09/19/17 Status: Completed Misc Medication 300 mL, Soln-IV, IV, Once, first dose 09/19/17 13:23:00 CDT, stop date 09/19/17 13:23:00 CDT Start Date: 09/19/17 Stop Date: 09/19/17 Status: Completed naproxen 500 mg (as sodium) oral tablet, extended release 500 mg=1 tabs, Oral, As Indicated, PRN for pain, Back Pain Start Date: 08/18/17 Stop Date: 09/01/17 Status: Ordered [place] 10 mg-325 mg oral tablet 1 tabs, Oral, q6hr, PRN as needed for pain, 0 Refill(s), pain Start Date: 01/27/17 Stop Date: 03/21/17 Status: Discontinued omeprazole 40 mg oral delayed release capsule 40 mg=1 caps, Oral, Daily, Acide Reflux Start Date: 08/18/17 Stop Date: 09/01/17 Status: Ordered steroid pack steroid pack, See Instructions, Pt inst by Dr Price to start steroid pack on 02-08-17, 0 Refill(s), sacroiliac joint pain Start Date: 03/10/17 Stop Date: 08/18/17 Status: Discontinued Vitamin D2 50,000 IntUnit, Oral, qThurs, 0 Refill(s), supplement Start Date: 03/10/17 Stop Date: 03/24/17 Status: Ordered Results LABORATORY Most recent to 1 oldest [Reference Range]: urine beta hcg Negative, Control Present (09/19/17 11:45 AM) Immunizations No data available for this section Procedures Procedure Date Related Diagnosis Body Site FLUOROSCOPIC GUIDANCE AND LOCALIZATION OF 09/19/17 NEEDLE OR CATHETER TIP; SPINE INJ. 93232 (Left)1 INJ DIAG/THERAPEUTIC AGENT PARAVERTEBRAL 09/19/17 FACET JOINT W/ IMAGE GUIDANCE LUMBAR/SACRAL 2ND LEVEL 11982 (Left)2 INJ DIAGNOSTIC/THERAPEUTIC AGENT 09/19/17 PARAVERTEBRAL FACET JOINT W/ IMAGE GUIDANCE LUMBAR/SACRAL 89363 (Left)3 INJECTION DIAGNOSTIC OR THERAPEUTIC AGENT W/ 09/19/17 IMAGE GUIDANCE LUMBAR/SACRAL 3RD LEVEL 23437 (Left)4 IUD removal 2017 1auto-populated from documented surgical case 2auto-populated from documented surgical case 3auto-populated from documented surgical case 4auto-populated from documented surgical case Social History Social History Type Response Smoking Status Never smoker Assessment and Plan No data available for this section
--- OUTSIDE RECORDS SUMMARY | 2019-01-01 05:11 | XMS REPORT | Summary of Care ---
Author Author [facility] Organization [facility] Address Unknown Phone Unavailable Encounter [facility] [id number] Date(s): 06/07/18 - 06/07/18 [facility] [address] [place], [place] [address] Encounter Diagnosis Low back pain (Final) - Discharge Disposition: Discharged to Home or Self Care Attending Physician: Scar Gibson MD Admitting Physician: Scar Gibson MD Referring Physician: Scar Gibson MD Vital Signs No data available for this section Problem List Condition Effective Dates Status Health Status Informant Acid Active reflux(Confirmed) Anxiety(Confirmed)1 Active Back Active pain(Confirmed)2 GERD - Active Gastro-esophageal reflux disease(Confirmed) Lumbar Active spondylosis(Confirme d) Sleep Active apnea(Confirmed)3, 4, 5, 6 1pt mother lives out of the country and has cancer 2sacrioliac joint 3pt has not received a cpap machine 4does not have cpap machine 5still does not have a cpap machine 6Pt was recently diagnosed and does not have [...] 0 Refill(s) Start Date: 09/19/17 Stop Date: 12/01/17 Status: Discontinued Flexeril 10 mg oral tablet 10 mg=1 tabs, Oral, As Indicated, PRN for spasm, # 30 tabs, muscle spasm Start Date: 05/11/18 Stop Date: 05/25/18 Status: Ordered gabapentin 300 mg oral capsule 300 mg=1 caps, Oral, TID, 0 Refill(s), pain Start Date: 01/27/17 Stop Date: 03/10/17 Status: Discontinued meloxicam 7.5 mg oral tablet 7.5 mg=1 tabs, Oral, Daily, 0 Refill(s), pain Start Date: 01/27/17 Stop Date: 03/10/17 Status: Discontinued naproxen 500 mg (as sodium) oral tablet, extended release 500 mg=1 tabs, Oral, As Indicated, PRN for pain, Back Pain Start Date: 08/18/17 Stop Date: 09/01/17 Status: Ordered [place] 10 mg-325 mg oral tablet 1 tabs, Oral, q6hr, PRN as needed for pain, 0 Refill(s), pain Start Date: 01/27/17 Stop Date: 03/21/17 Status: Discontinued omeprazole 40 mg oral delayed release capsule 40 mg=1 caps, Oral, Daily, Acide Reflux Start Date: 08/18/17 Stop Date: 09/01/17 Status: Ordered Pepcid 20 mg, Oral, Daily Start Date: 05/11/18 Stop Date: 05/25/18 Status: Ordered steroid pack steroid pack, See Instructions, Pt inst by Dr Price to start steroid pack on 02-08-17, 0 Refill(s), sacroiliac joint pain Start Date: 03/10/17 Stop Date: 08/18/17 Status: Discontinued terbinafine 250 mg oral tablet 250 mg=1 tabs, Oral, Daily, toenail fungus Start Date: 05/11/18 Stop Date: 05/25/18 Status: Ordered Vitamin D2 50,000 IntUnit, Oral, qThursday, 0 Refill(s), supplement Start Date: 03/10/17 Stop Date: 12/01/17 Status: Discontinued Results No data available for this section Immunizations No data available for this section Procedures No data available for this section Social History Social History Type Response Smoking Status Never smoker entered on: 01/27/17 Assessment and Plan No data available for this section
--- OUTSIDE RECORDS SUMMARY | 2019-01-01 05:11 | XMS REPORT | Summary of Care ---
Author Author [facility] Organization [facility] Address Unknown Phone Unavailable Encounter [facility](DENISSE) [id number] Date(s): 10/16/18 - 10/16/18 [facility] [address] [place] [address]- [phone] Discharge Disposition: Home or Self Care Attending Physician: Christiana Peña MD Referring Physician: Christiana Peña MD Vital Signs No data available for this section Problem List No data available for this section Allergies, Adverse Reactions, Alerts No Known Medication Allergies Medications No data available for this section Results No data available for this section Immunizations No data available for this section Procedures No data available for this section Social History Social History Type Response Smoking Status Never smoker; Exposure to Tobacco Smoke None; Cigarette Smoking Last 365 Days No; Reg Smoking Cessation Counseling No entered on: 01/28/15 Assessment and Plan No data available for this section
--- OUTSIDE RECORDS SUMMARY | 2019-01-01 05:11 | XMS REPORT | Summary of Care ---
Author Author [facility] Organization [facility] Address Unknown Phone Unavailable Encounter [facility] [id number] Date(s): 02/07/17 - 02/07/17 [facility] [address] [place], [place] [address] Discharge Diagnosis: Other intervertebral disc displacement, lumbosacral region Final: Radiculopathy, lumbosacral region Discharge Disposition: Discharged to Home or Self Care Attending Physician: Rosa Price MD Admitting Physician: Rosa Price MD Vital Signs 1 2 3 Most recent to oldest [Reference Range]: 37 DegC (02/07/17 11:06 AM) Temperature Oral [35.8-37.3 DegC] 36.8 DegC (02/07/17 11:20 AM) Temperature Temporal Artery [36.3-37.8 DegC] 98.24 (02/07/17 11:20 AM) Temperature Temporal Fahrenheit 98 bpm (02/07/17 11:06 AM) Peripheral Pulse Rate [55-105 bpm] 89 bpm (02/07/17 11:50 AM) 87 bpm (02/07/17 11:40 AM) 98 bpm (02/07/17 11:30 AM) Heart Rate Monitored [60-100 bpm] 16 (02/07/17 11:50 AM) 16 (02/07/17 11:40 AM) 16 (02/07/17 11:30 AM) Respiratory Rate [12-20] 98 % (02/07/17 11:50 AM) 98 % (02/07/17 11:40 AM) 99 % (02/07/17 11:30 AM) SpO2 [90-100 %] 119/75 mmHg (02/07/17 11:50 AM) 128/75 mmHg *HI* (02/07/17 11:40 AM) 130/81 mmHg *HI* (02/07/17 11:30 AM) Blood Pressure [110-120/65-85 mmHg] 89.7 mmHg (02/07/17 11:50 AM) 92.7 mmHg (02/07/17 11:40 AM) 97.3 mmHg (02/07/17 11:30 AM) Mean Arterial Pressure, Cuff 157 cm (02/07/17 11:06 AM) 157 cm (01/27/17 2:38 PM) Height 157 cm (02/07/17 11:06 AM) 157 cm (01/27/17 2:38 PM) Height/Length Dosing 62 in (02/07/17 11:06 AM) 62 in (01/27/17 2:38 PM) Height Inches 77.2 kg (02/07/17 11:06 AM) 77.2 kg (01/27/17 2:38 PM) Weight 77.2 kg (02/07/17 11:06 AM) 77.2 kg (01/27/17 2:38 PM) Weight Dosing 170 lb (02/07/17 11:06 AM) 170 lb (01/27/17 2:38 PM) Weight Pounds 31.32 kg/m2 (02/07/17 11:06 AM) 31.32 kg/m2 (01/27/17 2:38 PM) Body Mass Index Problem List Condition Effective Dates Status Health Status Informant Back pain(Confirmed) Active Sleep Active apnea(Confirmed)1 1Pt was recently diagnosed and does not have a cpap machine yet Allergies, Adverse Reactions, Alerts Substance Reaction Severity Status traMADol Numbness of face Active Medications cyclobenzaprine 10 mg oral tablet 10 mg=1 tabs, Oral, TID, PRN for spasm, # 30 tabs, 0 Refill(s), pain Start Date: 01/27/17 Stop Date: 02/10/17 Status: Ordered diphenhydrAMINE 25 mg=0.5 mL, Injection, IV Push, Once PRN for itching, first dose 02/07/17 11:3 8:00 CDT Start Date: 02/07/17 Stop Date: 02/07/17 Status: Discontinued fentaNYL 50 mcg=1 mL, Injection, IV, Once, first dose 02/07/17 11:13:00 CDT, stop date 11:13:00 CDT Start Date: 02/07/17 Stop Date: 02/07/17 Status: Completed fentaNYL 50 mcg=1 mL, Injection, IV, Once, first dose 02/07/17 11:18:00 CDT, stop date 11:18:00 CDT Start Date: 02/07/17 Stop Date: 02/07/17 Status: Completed gabapentin 300 mg oral capsule 300 mg=1 caps, Oral, TID, 0 Refill(s), pain Start Date: 01/27/17 Stop Date: 02/10/17 Status: Ordered Lidocaine 2% 0.2 mL IV Start [[place]] 0.2 mL, Injection, Subcutaneous, Once PRN for other (see comment), first dose 11:09:00 CDT Start Date: 02/07/17 Stop Date: 02/07/17 Status: Completed LR 1,000 mL 1,000 mL, IV, 30 mL/hr, start date 02/07/17 11:09:00 CDT Start Date: 02/07/17 Stop Date: 02/07/17 Status: Discontinued LR 1,000 mL 1,000 mL, IV, 75 mL/hr, start date 02/07/17 11:38:00 CDT Start Date: 02/07/17 Stop Date: 02/07/17 Status: Discontinued meloxicam 7.5 mg oral tablet 7.5 mg=1 tabs, Oral, Daily, 0 Refill(s), pain Start Date: 01/27/17 Stop Date: 02/10/17 Status: Ordered midazolam 1 mg=1 mL, Injection, IV, Once, first dose 02/07/17 11:13:00 CDT, stop date 07/22 11:13:00 CDT Start Date: 02/07/17 Stop Date: 02/07/17 Status: Completed midazolam 1 mg=1 mL, Injection, IV, Once, first dose 02/07/17 11:18:00 CDT, stop date 07/22 11:18:00 CDT Start Date: 02/07/17 Stop Date: 02/07/17 Status: Completed Misc Medication 300 mL, Soln-IV, IV, Once, first dose 02/07/17 11:31:00 CDT, stop date 02/07/17 11:31:00 CDT Start Date: 02/07/17 Stop Date: 02/07/17 Status: Completed [place] 10 mg-325 mg oral tablet 1 tabs, Oral, q6hr, PRN as needed for pain, 0 Refill(s), pain Start Date: 01/27/17 Stop Date: 02/10/17 Status: Ordered ondansetron 4 mg=2 mL, Injection, IV Push, q15min PRN for nausea/vomiting, order duration: 2 doses, first dose 02/07/17 11:38:00 CDT, stop date Limited # of times Start Date: 02/07/17 Stop Date: 02/07/17 Status: Discontinued ondansetron 8 mg=1 tabs, Tab-Dis, Oral, Once PRN for nausea/vomiting, first dose 02/07/17 11 :38:00 CDT Start Date: 02/07/17 Stop Date: 02/07/17 Status: Discontinued promethazine 12.5 mg=0.5 mL, Injection, IM, Once PRN for severe nausea, first dose 02/07/17 1 1:38:00 CDT Start Date: 02/07/17 Stop Date: 02/07/17 Status: Discontinued Saline Lock Flush 10 mL, Soln, IV Push, As Indicated PRN for flush, first dose 02/07/17 11:38:00 C DT Start Date: 02/07/17 Stop Date: 02/07/17 Status: Discontinued Results No data available for this section Immunizations No data available for this section Procedures Procedure Date Related Diagnosis Body Site FLUOROSCOPIC GUIDANCE AND LOCALIZATION OF 02/07/17 NEEDLE OR CATHETER TIP; SPINE INJ. 39897 (Right)[address] OF DIAG/THERA.SUBSTANCE 02/07/17 EPIDURAL OR SUBARACHNOID LUMBAR/SACRAL 14602 (Right)2 fibroid removed 03/2016 sinus sugery 09/2014 Cholecystectomy 2009 1auto-populated from documented surgical case 2auto-populated from documented surgical case Social History Social History Type Response Smoking Status Never smoker Assessment and Plan No data available for this section
--- OUTSIDE RECORDS SUMMARY | 2019-01-01 05:11 | XMS REPORT | Summary of Care ---
Author Author [facility] Organization [facility] Address Unknown Phone Unavailable Encounter [facility] [id number] Date(s): 08/22/17 - 08/22/17 [facility] [address] [place], [place] [address] [place] Discharge Diagnosis: Other spondylosis, lumbosacral region Discharge Disposition: Discharged to Home or Self Care Attending Physician: Rosa Price MD Admitting Physician: Rosa Price MD Vital Signs 1 2 3 Most recent to oldest [Reference Range]: 36.8 DegC (08/22/17 10:58 AM) Temperature Oral [35.8-37.3 DegC] 36.9 DegC (08/22/17 12:40 PM) Temperature Temporal Artery [36.3-37.8 DegC] 98.42 (08/22/17 12:40 PM) Temperature Temporal Fahrenheit 86 bpm (08/22/17 1:56 PM) 89 bpm (08/22/17 10:58 AM) Peripheral Pulse Rate [55-105 bpm] 90 bpm (08/22/17 1:20 PM) 97 bpm (08/22/17 1:10 PM) 100 bpm (08/22/17 1:00 PM) Heart Rate Monitored [60-100 bpm] 16 (08/22/17 1:56 PM) 16 (08/22/17 1:20 PM) 16 (08/22/17 1:10 PM) Respiratory Rate [12-20] 100 % (08/22/17 1:56 PM) 97 % (08/22/17 1:20 PM) 96 % (08/22/17 1:10 PM) SpO2 [90-100 %] 125/81 mmHg *HI* (08/22/17 1:56 PM) 130/78 mmHg *HI* (08/22/17 1:20 PM) 122/78 mmHg *HI* (08/22/17 1:10 PM) Blood Pressure [110-120/65-85 mmHg] 95.3 mmHg (08/22/17 1:20 PM) 92.7 mmHg (08/22/17 1:10 PM) 91.3 mmHg (08/22/17 1:00 PM) Mean Arterial Pressure, Cuff 157 cm (08/22/17 10:58 AM) 157 cm (08/18/17 8:18 AM) Height 157 cm (08/22/17 10:58 AM) 157 cm (08/18/17 8:18 AM) Height/Length Dosing 62 in (08/22/17 10:58 AM) 62 in (08/18/17 8:18 AM) Height Inches 75.3 kg (08/22/17 10:58 AM) 75.30 kg (08/18/17 8:18 AM) Weight 75.3 kg (08/22/17 10:58 AM) 75.3 kg (08/18/17 8:18 AM) Weight Dosing 166 lb (08/22/17 10:58 AM) 166 lb (08/18/17 8:18 AM) Weight Pounds 30.55 kg/m2 (08/22/17 10:58 AM) 30.55 kg/m2 (08/18/17 8:18 AM) Body Mass Index Problem List Condition Effective Dates Status Health Status Informant Acid Active reflux(Confirmed) Anxiety(Confirmed)1 Active Back Active pain(Confirmed)2 GERD - Active Gastro-esophageal reflux disease(Confirmed) Lumbar Active spondylosis(Confirme d) Sleep Active apnea(Confirmed)3, 4 1pt mother [place] and has cancer 2sacrioliac joint 3still does not have a cpap machine 4Pt was recently diagnosed and does not have a cpap machine yet Allergies, Adverse Reactions, Alerts Substance Reaction Severity Status traMADol Numbness of face Active Medications Carafate 1 g oral tablet 1 gm=1 tabs, Oral, BID, GERD Start Date: 08/18/17 Stop Date: 09/01/17 Status: Ordered cyclobenzaprine 10 mg oral tablet 10 mg=1 tabs, Oral, As Indicated, PRN for spasm, # 30 tabs, 0 Refill(s) Start Date: 03/21/17 Stop Date: 08/18/17 Status: Discontinued cyclobenzaprine 10 mg oral tablet 10 mg=1 tabs, Oral, TID, PRN for spasm, # 30 tabs, 0 Refill(s), pain Start Date: 01/27/17 Stop Date: 03/10/17 Status: Discontinued Dilaudid 0.5 mg=0.5 mL, Injection, IV Push, q10min PRN for pain severe (7-10), first dose 08/22/17 13:15:00 CDT Start Date: 08/22/17 Stop Date: 08/22/17 Status: Discontinued gabapentin 300 mg oral capsule 300 mg=1 caps, Oral, TID, 0 Refill(s), pain Start Date: 01/27/17 Stop Date: 03/10/17 Status: Discontinued lidocaine 1 mL, Injection, IV, Once, first dose 08/22/17 12:37:00 CDT, stop date 08/22/17 12:37:00 CDT Start Date: 08/22/17 Stop Date: 08/22/17 Status: Completed Lidocaine 2% 0.2 mL IV Start [[place]] 0.2 mL, Injection, Subcutaneous, Once PRN for other (see comment), first dose 10:56:00 CDT Start Date: 08/22/17 Stop Date: 08/22/17 Status: Completed LR 1,000 mL 1,000 mL, IV, 75 mL/hr, start date 08/22/17 13:15:00 CDT Start Date: 08/22/17 Stop Date: 08/22/17 Status: Discontinued LR 1,000 mL 1,000 mL, IV, 30 mL/hr, start date 08/22/17 10:56:00 CDT Start Date: 08/22/17 Stop Date: 08/22/17 Status: Discontinued meloxicam 7.5 mg oral tablet 7.5 mg=1 tabs, Oral, Daily, 0 Refill(s), pain Start Date: 01/27/17 Stop Date: 03/10/17 Status: Discontinued midazolam 1 mg=1 mL, Injection, IV, Once, first dose 08/22/17 12:37:00 CDT, stop date 08/06 11/22 12:37:00 CDT Start Date: 08/22/17 Stop Date: 08/22/17 Status: Completed midazolam 2 mg=2 mL, Injection, IV, Once, first dose 08/22/17 12:30:00 CDT, stop date 08/06 11/22 12:30:00 CDT Start Date: 08/22/17 Stop Date: 08/22/17 Status: Completed midazolam 2 mg=2 mL, Injection, IV, Once, first dose 08/22/17 12:33:00 CDT, stop date 08/06 11/22 12:33:00 CDT Start Date: 08/22/17 Stop Date: 08/22/17 Status: Completed Misc Medication 300 mL, Soln-IV, IV, Once, first dose 08/22/17 12:46:00 CDT, stop date 08/22/17 12:46:00 CDT Start Date: 08/22/17 Stop Date: 08/22/17 Status: Completed naproxen 500 mg (as sodium) oral tablet, extended release 500 mg=1 tabs, Oral, As Indicated, PRN for pain, Back Pain Start Date: 08/18/17 Stop Date: 09/01/17 Status: Ordered [place] 10 mg-325 mg oral tablet 1 tabs, Oral, q6hr, PRN as needed for pain, 0 Refill(s), pain Start Date: 01/27/17 Stop Date: 03/21/17 Status: Discontinued omeprazole 40 mg oral delayed release capsule 40 mg=1 caps, Oral, Daily, Acide Reflux Start Date: 08/18/17 Stop Date: 09/01/17 Status: Ordered propofol 30 mg=3 mL, Emulsion, IV, Once, first dose 08/22/17 12:37:00 CDT, stop date 08/06 11/22 12:37:00 CDT Start Date: 08/22/17 Stop Date: 08/22/17 Status: Completed Saline Lock Flush 10 mL, Soln, IV Push, As Indicated PRN for flush, first dose 08/22/17 13:15:00 C DT Start Date: 08/22/17 Stop Date: 08/22/17 Status: Discontinued steroid pack steroid pack, See Instructions, Pt inst by Dr Price to start steroid pack on 02-08-17, 0 Refill(s), sacroiliac joint pain Start Date: 03/10/17 Stop Date: 08/18/17 Status: Discontinued Vitamin D2 50,000 IntUnit, Oral, qThursday, 0 Refill(s), supplement Start Date: 03/10/17 Stop Date: 03/24/17 Status: Ordered Results LABORATORY Most recent to 1 oldest [Reference Range]: urine beta hcg Negative, Control Present (08/22/17 11:20 AM) Immunizations No data available for this section Procedures Procedure Date Related Diagnosis Body Site FLUOROSCOPIC GUIDANCE AND LOCALIZATION OF 08/22/17 NEEDLE OR CATHETER TIP; SPINE INJ. 85714 (Right)1 INJ DIAG/THERAPEUTIC AGENT PARAVERTEBRAL 08/22/17 FACET JOINT W/ IMAGE GUIDANCE LUMBAR/SACRAL 2ND LEVEL 14081 (Right)2 INJ DIAGNOSTIC/THERAPEUTIC AGENT 08/22/17 PARAVERTEBRAL FACET JOINT W/ IMAGE GUIDANCE LUMBAR/SACRAL 32879 (Right)3 INJECTION DIAGNOSTIC OR THERAPEUTIC AGENT W/ 08/22/17 IMAGE GUIDANCE LUMBAR/SACRAL 3RD LEVEL 23469 (Right)4 1auto-populated from documented surgical case 2auto-populated from documented surgical case 3auto-populated from documented surgical case 4auto-populated from documented surgical case Social History Social History Type Response Smoking Status Never smoker Assessment and Plan No data available for this section
--- OUTSIDE RECORDS SUMMARY | 2019-01-01 05:11 | XMS REPORT | Summary of Care ---
Author Author [facility] Organization [facility] Address Unknown Phone Unavailable Encounter [facility] [id number] Date(s): 12/05/17 - 12/05/17 [facility] [address] [place], [place] [address] Discharge Diagnosis: Other spondylosis, lumbosacral region Discharge Disposition: Discharged to Home or Self Care Attending Physician: Rosa Price MD Admitting Physician: Rosa Price MD Vital Signs 1 2 3 Most recent to oldest [Reference Range]: 37 DegC (12/05/17 12:14 PM) Temperature Oral [35.8-37.3 DegC] 36.6 DegC (12/05/17 1:30 PM) Temperature Temporal Artery [36.3-37.8 DegC] 97.88 (12/05/17 1:30 PM) Temperature Temporal Fahrenheit 78 bpm (12/05/17 2:19 PM) 79 bpm (12/05/17 12:14 PM) Peripheral Pulse Rate [55-105 bpm] 76 bpm (12/05/17 1:50 PM) 77 bpm (12/05/17 1:40 PM) 98 bpm (12/05/17 1:30 PM) Heart Rate Monitored [60-100 bpm] 20 (12/05/17 2:19 PM) 20 (12/05/17 1:50 PM) 16 (12/05/17 1:40 PM) Respiratory Rate [12-20] 98 % (12/05/17 2:19 PM) 98 % (12/05/17 1:50 PM) 100 % (12/05/17 1:40 PM) SpO2 [90-100 %] 120/57 mmHg (12/05/17 2:19 PM) 119/57 mmHg (12/05/17 1:50 PM) 114/64 mmHg (12/05/17 1:40 PM) Blood Pressure [110-120/65-85 mmHg] 77.7 mmHg (12/05/17 1:50 PM) 80.7 mmHg (12/05/17 1:40 PM) 87.3 mmHg (12/05/17 1:30 PM) Mean Arterial Pressure, Cuff 157 cm (12/05/17 12:14 PM) 157 cm (12/01/17 1:49 PM) Height 157 cm (12/05/17 12:14 PM) 157 cm (12/01/17 1:49 PM) Height/Length Dosing 62 in (12/05/17 12:14 PM) 62 in (12/01/17 1:49 PM) Height Inches 75.3 kg (12/05/17 12:14 PM) 75.3 kg (12/01/17 1:49 PM) Weight 75.3 kg (12/05/17 12:14 PM) 75.3 kg (12/01/17 1:49 PM) Weight Dosing 166 lb (12/05/17 12:14 PM) 166 lb (12/01/17 1:49 PM) Weight Pounds 30.55 kg/m2 (12/05/17 12:14 PM) 30.55 kg/m2 (12/01/17 1:49 PM) Body Mass Index Problem List Condition [...] Date: 09/19/17 Stop Date: 12/01/17 Status: Discontinued fentaNYL 50 mcg=1 mL, Injection, IV, Once, first dose 12/05/17 12:59:00 CDT, stop date 12:59:00 CDT Start Date: 12/05/17 Stop Date: 12/05/17 Status: Completed fentaNYL 50 mcg=1 mL, Injection, IV, Once, first dose 12/05/17 13:05:00 CDT, stop date 13:05:00 CDT Start Date: 12/05/17 Stop Date: 12/05/17 Status: Completed gabapentin 300 mg oral capsule 300 mg=1 caps, Oral, TID, 0 Refill(s), pain Start Date: 01/27/17 Stop Date: 03/10/17 Status: Discontinued lidocaine 3 mL, Injection, IV, Once, first dose 12/05/17 13:06:00 CDT, stop date 12/05/17 13:06:00 CDT Start Date: 12/05/17 Stop Date: 12/05/17 Status: Completed Lidocaine 2% 0.2 mL IV Start [[place]] 0.2 mL, Injection, Subcutaneous, Once PRN for other (see comment), first dose 12:17:00 CDT Start Date: 12/05/17 Stop Date: 12/05/17 Status: Completed LR 1,000 mL 1,000 mL, IV, 75 mL/hr, start date 12/05/17 13:40:00 CDT Start Date: 12/05/17 Stop Date: 12/05/17 Status: Discontinued LR 1,000 mL 1,000 mL, IV, 30 mL/hr, start date 12/05/17 12:17:00 CDT Start Date: 12/05/17 Stop Date: 12/05/17 Status: Discontinued meloxicam 7.5 mg oral tablet 7.5 mg=1 tabs, Oral, Daily, 0 Refill(s), pain Start Date: 01/27/17 Stop Date: 03/10/17 Status: Discontinued midazolam 3 mg=3 mL, Injection, IV, Once, first dose 12/05/17 12:59:00 CDT, stop date 11/07 05/25 12:59:00 CDT Start Date: 12/05/17 Stop Date: 12/05/17 Status: Completed midazolam 2 mg=2 mL, Injection, IV, Once, first dose 12/05/17 13:05:00 CDT, stop date 11/07 05/25 13:05:00 CDT Start Date: 12/05/17 Stop Date: 12/05/17 Status: Completed Misc Medication 200 mL, Soln-IV, IV, Once, first dose 12/05/17 13:38:00 CDT, stop date 12/05/17 13:38:00 CDT Start Date: 12/05/17 Stop Date: 12/05/17 Status: Completed naproxen 500 mg (as sodium) oral tablet, extended release 500 mg=1 tabs, Oral, As Indicated, PRN for pain, Back Pain Start Date: 08/18/17 Stop Date: 09/01/17 Status: Ordered [place] 10 mg-325 mg oral tablet 1 tabs, Oral, q6hr, PRN as needed for pain, 0 Refill(s), pain Start Date: 01/27/17 Stop Date: 03/21/17 Status: Discontinued omeprazole 40 mg oral delayed release capsule 40 mg=1 caps, Oral, Daily, Acide Reflux Start Date: 08/18/17 Stop Date: 09/01/17 Status: Ordered propofol 50 mg=5 mL, Emulsion, IV, Once, first dose 12/05/17 13:26:00 CDT, stop date 11/07 05/25 13:26:00 CDT Start Date: 12/05/17 Stop Date: 12/05/17 Status: Completed propofol 50 mg=5 mL, Emulsion, IV, Once, first dose 12/05/17 13:20:00 CDT, stop date 11/07 05/25 13:20:00 CDT Start Date: 12/05/17 Stop Date: 12/05/17 Status: Completed propofol 50 mg=5 mL, Emulsion, IV, Once, first dose 12/05/17 13:11:00 CDT, stop date 11/07 05/25 13:11:00 CDT Start Date: 12/05/17 Stop Date: 12/05/17 Status: Completed propofol 50 mg=5 mL, Emulsion, IV, Once, first dose 12/05/17 13:06:00 CDT, stop date 11/07 05/25 13:06:00 CDT Start Date: 12/05/17 Stop Date: 12/05/17 Status: Completed Saline Lock Flush 10 mL, Soln, IV Push, As Indicated PRN for flush, first dose 12/05/17 13:40:00 C DT Start Date: 12/05/17 Stop Date: 12/05/17 Status: Discontinued steroid pack steroid pack, See Instructions, Pt inst by Dr Price to start steroid pack on 02-08-17, 0 Refill(s), sacroiliac joint pain Start Date: 03/10/17 Stop Date: 08/18/17 Status: Discontinued Vitamin D2 50,000 IntUnit, Oral, qThurs, 0 Refill(s), supplement Start Date: 03/10/17 Stop Date: 12/01/17 Status: Discontinued Results LABORATORY Most recent to 1 oldest [Reference Range]: urine beta hcg Negative, Control Present (12/05/17 12:25 PM) Immunizations No data available for this section Procedures Procedure Date Related Diagnosis Body Site DESTRUCTION BY NEUROLYTIC AGENT PARAVERTEBRAL 12/05/17 FACET JT NERVE W/ IMAGE LUMB/SACRAL EACH 93993 (Left)1 DESTRUCTION BY NEUROLYTIC AGT PARARVERT FACET 12/05/17 JT W/IMAGE LUM/SAC [place] JT 71591 (Left, L5, S1)2 FLUOROSCOPIC GUIDANCE AND LOCALIZATION OF 12/05/17 NEEDLE OR CATHETER TIP; SPINE INJ. 24664 (Left)3 1auto-populated from documented surgical case 2auto-populated from documented surgical case 3auto-populated from documented surgical case Social History Social History Type Response Smoking Status Never smoker Assessment and Plan No data available for this section
--- OUTSIDE RECORDS SUMMARY | 2019-01-01 05:11 | XMS REPORT | Summary of Care ---
Author Author [facility] Organization [facility] Address Unknown Phone Unavailable Encounter [facility] [id number] Date(s): 05/15/18 - 05/15/18 [facility] [address] [place], [place] [address] Encounter Diagnosis Radiculopathy, lumbosacral region (Discharge Diagnosis) - 05/15/18 Discharge Disposition: Discharged to Home or Self Care Attending Physician: Rosa Price MD Admitting Physician: Rosa Price MD Vital Signs 1 2 3 Most recent to oldest [Reference Range]: 37 DegC (05/15/18 1:04 PM) Temperature Oral [35.8-37.3 DegC] 36.7 DegC (05/15/18 2:10 PM) Temperature Temporal Artery [36.3-37.8 DegC] 98.06 (05/15/18 2:10 PM) Temperature Temporal Fahrenheit 87 bpm (05/15/18 3:11 PM) 90 bpm (05/15/18 1:04 PM) Peripheral Pulse Rate [55-105 bpm] 91 bpm (05/15/18 2:30 PM) 81 bpm (05/15/18 2:20 PM) 86 bpm (05/15/18 2:10 PM) Heart Rate Monitored [60-100 bpm] 18 (05/15/18 3:11 PM) 16 (05/15/18 2:30 PM) 16 (05/15/18 2:20 PM) Respiratory Rate [12-20] 98 % (05/15/18 3:11 PM) 98 % (05/15/18 2:30 PM) 97 % (05/15/18 2:20 PM) SpO2 [90-100 %] 115/77 mmHg (05/15/18 3:11 PM) 111/72 mmHg (05/15/18 2:30 PM) 116/76 mmHg (05/15/18 2:20 PM) Blood Pressure [110-120/65-85 mmHg] 85 mmHg (05/15/18 2:30 PM) 89.3 mmHg (05/15/18 2:20 PM) 92.3 mmHg (05/15/18 2:10 PM) Mean Arterial Pressure, Cuff 157 cm (05/15/18 1:04 PM) 157 cm (05/11/18 3:10 PM) Height 157 cm (05/15/18 1:04 PM) 157 cm (05/11/18 3:10 PM) Height/Length Dosing 62 in (05/15/18 1:04 PM) 62 in (05/11/18 3:10 PM) Height Inches 75.37 kg (05/15/18 1:04 PM) 75.3 kg (05/11/18 3:10 PM) Weight 75.37 kg (05/15/18 1:04 PM) 75.3 kg (05/11/18 3:10 PM) Weight Dosing 166 lb (05/15/18 1:04 PM) 166 lb (05/11/18 3:10 PM) Weight Pounds 30.58 kg/m2 (05/15/18 1:04 PM) 30.55 kg/m2 (05/11/18 3:10 PM) Body Mass Index Problem List Condition [...] Date: 01/27/17 Stop Date: 03/10/17 Status: Discontinued diphenhydrAMINE 25 mg=0.5 mL, Injection, IV Push, Once PRN for itching, first dose 05/15/18 14:0 8:00 RESEARCH FELLOW Start Date: 05/15/18 Stop Date: 05/15/18 Status: Discontinued doxycycline monohydrate 100 mg oral capsule 100 mg=1 caps, Oral, BID, 0 Refill(s) Start Date: 09/19/17 Stop Date: 12/01/17 Status: Discontinued fentaNYL 50 mcg=1 mL, Injection, IV, Once, first dose 05/15/18 13:52:00 RESEARCH FELLOW, stop date 13:52:00 RESEARCH FELLOW Start Date: 05/15/18 Stop Date: 05/15/18 Status: Completed fentaNYL 50 mcg=1 mL, Injection, IV, Once, first dose 05/15/18 13:57:00 RESEARCH FELLOW, stop date 13:57:00 RESEARCH FELLOW Start Date: 05/15/18 Stop Date: 05/15/18 Status: Completed Flexeril 10 mg oral tablet 10 mg=1 [...] PRN for other (see comment), first dose 12:58:00 RESEARCH FELLOW Start Date: 05/15/18 Stop Date: 05/15/18 Status: Completed LR 1,000 mL 1,000 mL, IV, 75 mL/hr, start date 05/15/18 14:08:00 RESEARCH FELLOW Start Date: 05/15/18 Stop Date: 05/15/18 Status: Discontinued LR 1,000 mL 1,000 mL, IV, 30 mL/hr, start date 05/15/18 12:58:00 RESEARCH FELLOW Start Date: 05/15/18 Stop Date: 05/15/18 Status: Discontinued meloxicam 7.5 mg oral tablet 7.5 mg=1 tabs, Oral, Daily, 0 Refill(s), pain Start Date: 01/27/17 Stop Date: 03/10/17 Status: Discontinued midazolam 1 mg=1 mL, Injection, IV, Once, first dose 05/15/18 14:01:00 RESEARCH FELLOW, stop date 12/24 14:01:00 RESEARCH FELLOW Start Date: 05/15/18 Stop Date: 05/15/18 Status: Completed midazolam 1 mg=1 mL, Injection, IV, Once, first dose 05/15/18 13:52:00 RESEARCH FELLOW, stop date 12/24 13:52:00 RESEARCH FELLOW Start Date: 05/15/18 Stop Date: 05/15/18 Status: Completed midazolam 1 mg=1 mL, Injection, IV, Once, first dose 05/15/18 13:57:00 RESEARCH FELLOW, stop date 12/24 13:57:00 RESEARCH FELLOW Start Date: 05/15/18 Stop Date: 05/15/18 Status: Completed midazolam 1 mg=1 mL, Injection, IV, Once, first dose 05/15/18 14:04:00 RESEARCH FELLOW, stop date 12/24 14:04:00 RESEARCH FELLOW Start Date: 05/15/18 Stop Date: 05/15/18 Status: Completed Misc Medication 150 mL, Soln-IV, IV, Once, first dose 05/15/18 14:13:00 RESEARCH FELLOW, stop date 05/15/18 14:13:00 RESEARCH FELLOW Start Date: 05/15/18 Stop Date: 05/15/18 Status: Completed naproxen 500 mg (as sodium) oral tablet, extended release 500 mg=1 tabs, Oral, As Indicated, PRN for pain, Back Pain Start Date: 08/18/17 Stop Date: 09/01/17 Status: Ordered [place] 10 mg-325 mg oral tablet 1 tabs, Oral, q6hr, PRN as needed for pain, 0 Refill(s), pain Start Date: 01/27/17 Stop Date: 03/21/17 Status: Discontinued omeprazole 40 mg oral delayed release capsule 40 mg=1 caps, Oral, Daily, Acide Reflux Start Date: 08/18/17 Stop Date: 09/01/17 Status: Ordered ondansetron 4 mg=2 mL, Injection, IV Push, q15min PRN for nausea, order duration: 2 doses, f irst dose 05/15/18 14:08:00 RESEARCH FELLOW, stop date Limited # of times Start Date: 05/15/18 Stop Date: 05/15/18 Status: Discontinued Pepcid 20 mg, Oral, Daily Start Date: 05/11/18 Stop Date: 05/25/18 Status: Ordered promethazine 12.5 mg=0.5 mL, Injection, IM, Once PRN for vomiting, first dose 05/15/18 14:08: 00 RESEARCH FELLOW Start Date: 05/15/18 Stop Date: 05/15/18 Status: Discontinued Saline Lock Flush 10 mL, Soln, IV Push, As Indicated PRN for flush, first dose 05/15/18 14:08:[address] Start Date: 05/15/18 Stop Date: 05/15/18 Status: Discontinued steroid pack steroid pack, See [...] Date: 03/10/17 Stop Date: 12/01/17 Status: Discontinued Xopenex 0.63 mg/3 mL inhalation solution 0.63 mg=3 mL, Soln, NEB, Once PRN for wheezing, first dose 05/15/18 14:08:00 RESEARCH FELLOW Start Date: 05/15/18 Stop Date: 05/15/18 Status: Discontinued Results LABORATORY Most recent to 1 oldest [Reference Range]: urine beta hcg Negative, Control Present (05/15/18 1:04 PM) Immunizations No data available for this section Procedures Procedure Date Related Diagnosis Body Site Status INJ.CATH PLACE OF DIAG/THERA.SUBSTANCE 05/15/18 Completed EPIDURAL OR SUBARACHNOID LUMBAR/SACRAL 72823 (Right)1 1auto-populated from documented surgical case Social History Social History Type Response Smoking Status Never smoker entered on: 01/27/17 Assessment and Plan No data available for this section
--- OUTSIDE RECORDS SUMMARY | 2019-01-01 05:11 | XMS REPORT | Summary of Care ---
Author Author [facility] Organization [facility] Address Unknown Phone Unavailable Encounter [facility] [address] Date(s): 03/21/17 - 03/21/17 [facility] [address] [place], [place] [address] Final: Sacroiliitis, not elsewhere classified Discharge Diagnosis: Radiculopathy, lumbosacral region Discharge Disposition: Discharged to Home or Self Care Attending Physician: Rosa Price MD Admitting Physician: Rosa Price MD Vital Signs 1 2 3 Most recent to oldest [Reference Range]: 36.7 DegC (03/21/17 10:20 AM) Temperature Oral [35.8-37.3 DegC] 36.7 DegC (03/21/17 12:00 PM) Temperature Tympanic [36.6-38.1 DegC] 98.06 (03/21/17 12:00 PM) Temperature Tympanic Fahrenheit 81 bpm (03/21/17 12:58 PM) 84 bpm (03/21/17 10:20 AM) Peripheral Pulse Rate [55-105 bpm] 87 bpm (03/21/17 12:20 PM) 86 bpm (03/21/17 12:10 PM) 92 bpm (03/21/17 12:00 PM) Heart Rate Monitored [60-100 bpm] 17 (03/21/17 12:58 PM) 14 (03/21/17 12:20 PM) 12 (03/21/17 12:10 PM) Respiratory Rate [12-20] 97 % (03/21/17 12:58 PM) 100 % (03/21/17 12:20 PM) 100 % (03/21/17 12:10 PM) SpO2 [90-100 %] 127/77 mmHg *HI* (03/21/17 12:58 PM) 135/87 mmHg *HI* (03/21/17 12:20 PM) 134/85 mmHg *HI* (03/21/17 12:10 PM) Blood Pressure [110-120/65-85 mmHg] 103 mmHg (03/21/17 12:20 PM) 101.3 mmHg (03/21/17 12:10 PM) 97.3 mmHg (03/21/17 12:00 PM) Mean Arterial Pressure, Cuff 157 cm (03/21/17 10:20 AM) 157 cm (03/10/17 3:48 PM) Height 157 cm (03/21/17 10:20 AM) 157 cm (03/10/17 3:48 PM) Height/Length Dosing 62 in (03/21/17 10:20 AM) 62 in (03/10/17 3:48 PM) Height Inches 77.2 kg (03/21/17 10:20 AM) 77.2 kg (03/10/17 3:48 PM) Weight 77.2 kg (03/21/17 10:20 AM) 77.2 kg (03/10/17 3:48 PM) Weight Dosing 170 lb (03/21/17 10:20 AM) 170 lb (03/10/17 3:48 PM) Weight Pounds 31.32 kg/m2 (03/21/17 10:20 AM) 31.32 kg/m2 (03/10/17 3:48 PM) Body Mass Index Problem List Condition Effective Dates Status Health Status Informant Anxiety(Confirmed)1 Active Back Active pain(Confirmed)2 Sleep Active apnea(Confirmed)3, 4 1pt mother lives [...] 0 Refill(s) Start Date: 03/21/17 Stop Date: 04/04/17 Status: Ordered cyclobenzaprine 10 mg oral tablet 10 mg=1 tabs, Oral, TID, PRN for spasm, # 30 tabs, 0 Refill(s), pain Start Date: 01/27/17 Stop Date: 03/10/17 Status: Discontinued diphenhydrAMINE 25 mg=0.5 mL, Injection, IV Push, Once PRN for itching, first dose 03/21/17 12:1 6:00 MARK UP DESIGNER Start Date: 03/21/17 Stop Date: 03/21/17 Status: Discontinued fentaNYL 50 mcg=1 mL, Injection, IV, Once, first dose 03/21/17 11:55:00 MARK UP DESIGNER, stop date 11:55:00 MARK UP DESIGNER Start Date: 03/21/17 Stop Date: 03/21/17 Status: Completed fentaNYL 50 mcg=1 mL, Injection, IV, Once, first dose 03/21/17 11:58:00 MARK UP DESIGNER, stop date 11:58:00 MARK UP DESIGNER Start Date: 03/21/17 Stop Date: 03/21/17 Status: Completed gabapentin 300 mg oral capsule 300 mg=1 caps, Oral, TID, 0 Refill(s), pain Start Date: 01/27/17 Stop Date: 03/10/17 Status: Discontinued Lidocaine 2% 0.2 mL IV Start [[place]] 0.2 mL, Injection, Subcutaneous, Once PRN for other (see comment), first dose 10:20:00 MARK UP DESIGNER Start Date: 03/21/17 Stop Date: 03/21/17 Status: Completed LR 1,000 mL 1,000 mL, IV, 30 mL/hr, start date 03/21/17 10:20:00 MARK UP DESIGNER Start Date: 03/21/17 Stop Date: 03/21/17 Status: Discontinued LR 1,000 mL 1,000 mL, IV, 75 mL/hr, start date 03/21/17 12:16:00 MARK UP DESIGNER Start Date: 03/21/17 Stop Date: 03/21/17 Status: Discontinued meloxicam 7.5 mg oral tablet 7.5 mg=1 tabs, Oral, Daily, 0 Refill(s), pain Start Date: 01/27/17 Stop Date: 03/10/17 Status: Discontinued midazolam 2 mg=2 mL, Injection, IV, Once, first dose 03/21/17 12:01:00 MARK UP DESIGNER, stop date 03/08 08/22 12:01:00 MARK UP DESIGNER Start Date: 03/21/17 Stop Date: 03/21/17 Status: Completed midazolam 1 mg=1 mL, Injection, IV, Once, first dose 03/21/17 11:55:00 MARK UP DESIGNER, stop date 03/08 08/22 11:55:00 MARK UP DESIGNER Start Date: 03/21/17 Stop Date: 03/21/17 Status: Completed midazolam 1 mg=1 mL, Injection, IV, Once, first dose 03/21/17 11:58:00 MARK UP DESIGNER, stop date 03/08 08/22 11:58:00 MARK UP DESIGNER Start Date: 03/21/17 Stop Date: 03/21/17 Status: Completed Misc Medication 500 mL, Soln-IV, IV, Once, first dose 03/21/17 12:09:00 MARK UP DESIGNER, stop date 03/21/17 12:09:00 MARK UP DESIGNER Start Date: 03/21/17 Stop Date: 03/21/17 Status: Completed [place] 10 mg-325 mg oral tablet 1 tabs, Oral, q6hr, PRN as needed for pain, 0 Refill(s), pain Start Date: 01/27/17 Stop Date: 03/21/17 Status: Discontinued ondansetron 4 mg=2 mL, Injection, IV Push, q15min PRN for nausea/vomiting, order duration: 2 doses, first dose 03/21/17 12:16:00 MARK UP DESIGNER, stop date Limited # of times Start Date: 03/21/17 Stop Date: 03/21/17 Status: Discontinued promethazine 12.5 mg=0.5 mL, Injection, IM, Once PRN for severe nausea, first dose 03/21/17 1 2:16:00 MARK UP DESIGNER Start Date: 03/21/17 Stop Date: 03/21/17 Status: Discontinued Saline Lock Flush 10 mL, Soln, IV Push, As Indicated PRN for flush, first dose 03/21/17 12:16:[address] Start Date: 03/21/17 Stop Date: 03/21/17 Status: Discontinued steroid pack steroid pack, See Instructions, Pt inst by Dr Price to start steroid pack on 02-08-17, 0 Refill(s), sacroiliac joint pain Start Date: 03/10/17 Status: Ordered Vitamin D2 50,000 IntUnit, Oral, qThursday, 0 Refill(s), supplement Start Date: 03/10/17 Stop Date: 03/24/17 Status: Ordered Results LABORATORY Most recent to 1 oldest [Reference Range]: urine beta hcg Negative, Control Present (03/21/17 10:43 AM) Immunizations No data available for this section Procedures Procedure Date Related Diagnosis Body Site BLOCK SACROILIAC JOINT 24935 (Left)1 03/21/17 FLUOROSCOPIC GUIDANCE AND LOCALIZATION OF 03/21/17 NEEDLE OR CATHETER TIP; SPINE INJ. 70212 (Left)2 1auto-populated from documented surgical case 2auto-populated from documented surgical case Social History Social History Type Response Smoking Status Never smoker Assessment and Plan No data available for this section
--- OUTSIDE RECORDS SUMMARY | 2019-01-01 05:11 | XMS REPORT ---
Author Author [facility] Address Unknown Phone Unavailable Care Team Providers Care Channeling Machine Operator Name Role Phone Jian BETTENCOURT Unavailable Unavailable Problems This patient has no known problems. Allergies, Adverse Reactions, Alerts This patient has no known allergies or adverse reactions. Medications This patient has no known medications. Encounters Start Date/Time End Date/Time Encounter Type Admission Type Attending [facility] Care Facility Care Department Encounter ID 2018-10-16 10:04:00 2018-10-16 10:04:00 Outpatient [id number] Results Test Description Test Time Test Comments Text Results Atomic Results Result Comments CHEST 2 VIEWS 2018-12-31 17:34:00 [place] [address] Patient Name: ESPERANZA MILLIGAN MR #: [id number] : 1975 Age/Sex: 43/F Req #: [id number] Adm Physician: Ordered by: Jian BETTENCOURT DPM Report #: [id number] Location: OR Room/Bed: Procedure: [id number] DX/CHEST 2 VIEWS Exam Date: 12/31/18 Exam Time: 1715 REPORT STATUS: Signed Exam: Chest radiograph Clinical History: Preoperative singh arance Findings: The cardiomediastinal silhouette and lungs are normal. The regional skeleton and soft tissue are unremarkable. There is no evidence of pleural effusion or pneumothorax. Impression: No radiographic evidence of acute cardiopulmonary disease. Signed by: Dr. Herb Luna MD on 12/31/2018 5:35 PM Dictated By: MEAGHAN LUNA MD 173 Transcribed By: ARLETTE on 12/31/181734 COPY TO: Jian BETTENCOURT DPM
--- OUTSIDE RECORDS SUMMARY | 2019-01-01 05:11 | XMS REPORT | Summary of Care ---
Author Author [facility] Organization [facility] Address Unknown Phone Unavailable Encounter [facility](FIN) [id number] Date(s): 08/09/17 - 08/09/17 [facility] [address] [place] [address]- Attending Physician: Carter Gotti MD Referring Physician: Carter Gotti MD Vital Signs No data available for this section Problem List No data available for this section Allergies, Adverse Reactions, Alerts Substance Reaction Severity Status NKDA Active Medications No data available for this section [...]
[2019-01-01 09:05] VITALS: BP 116/77
--- NOTE | 2019-01-01 13:44 | Operative Report ---
DATE OF PROCEDURE: 01/01/2019 SURGEON: Wandy Kan DPM ([facility]) CUT IN WORKER SURGEON: Magaly Hall DPM PREOPERATIVE DIAGNOSIS: Heel spur, bilateral. POSTOPERATIVE DIAGNOSIS: Heel spur, bilateral. OPERATIVE PROCEDURE: Injection of the right heel. Prior to this surgery, I injected 4 mL of 0.5 Marcaine and 1 mL of Decadron. The procedure is excision of heel spur, left foot. The patient tolerated this part. DESCRIPTION OF PROCEDURE: The patient was placed on the OR table in the supine position. The left lower extremity was prepped and draped in the usual manner. A general anesthetic was administered and hemostasis accomplished using a pneumatic cuff, set at 350 mmHg at thigh level. An incision approximately 4 cm in length was made on the medial, was deepened exposing the plantar fascia. The plantar fascia was then released from the plantar aspect of the calcaneus, this exposed the heel spur, which was then removed with an osteotome and a mallet. The plantar aspect of the calcaneus was then smoothed with a hand rasp. The wound was flushed extensively with sterile saline solution. A size #7 TLS drain was inserted into the wound. Subcutaneous tissue was then closed with 3-0 Vicryl and skin with 4-0 nylon. Following the procedure, 9 mL of 0.5 Marcaine and 1 mL of Decadron were injected. A sterile compression dressing was then applied. At this time, the pneumatic cuff was released and a reflex hyperemia was observed to all digits. The patient tolerated the procedure and anesthesia well, and left the OR to recovery in good condition with vital signs stable. S Jose Kan DPM ([place]) SH/MODL /[id number] [id number]
== END | disposition home or self-care (01) ==
LOC: OR 05:05
PROVIDERS: ATTEND Podiatrist Foot & Ankle Surgery
DX: M77.32 Calcaneal spur, left foot (principal); M77.31 Calcaneal spur, right foot; M72.2 Plantar fascial fibromatosis; G47.33 Obstructive sleep apnea (adult) (pediatric); K21.9 Gastro-esophageal reflux disease without esophagitis; Z88.6 Allergy status to analgesic agent; Z01.810 Encounter for preprocedural cardiovascular examination; Z01.818 Encounter for other preprocedural examination
CPT/HCPCS: 28119; 71046; 81025; 93005; 96372; J0131; J0690; J1100; J1170; J1885; J2001; J2250; J2405; J2704; J3010

== ENCOUNTER 2020-09-07 22:03 | Inpatient (IN) | payer OTHER ==
[~2020-09-07] VITALS: Ht 157.5 cm; Wt 54.4 kg
[~2020-09-07 22:03] MED LIST changes: -ACETAMINOPHEN 1000 MG/100 ML 100 ML IV ONE; -BUPIVACAINE HCL 0.5% INJ 30 ML VIAL INJ ONE; -CEFAZOLIN SOD 1 GM/NS 50ML 50 ML IV ONE; -DEXAMETHASONE SOD PHOS INJ 4 MG/ML VIAL ONE; -FENTANYL CITRATE/PF 100MCG/2 ML INJ ONE; -HYDROMORPHONE 1MG/1ML INJ ONE; -KETOROLAC TROMETHAMINE 30 MG/ML VIAL ONE; -LIDOCAINE HCL 2% LOCAL INJ 5 ML SDV VIAL INJ ONE; -MIDAZOLAM HCL 2 MG/2 ML VIAL ONE; -ONDANSETRON HCL INJ 2MG/ML 2ML 2 MG/ML VIAL ONE; -PROPOFOL IV EMULSION 10 MG/ML 20 ML VIAL ONE; -SEVOFLURANE INHAL SOLN 250 ML PEN BTL ONE
[2020-09-07] MEDS ORDERED: CEFEPIME HCL 1GM 1 GM in SODIUM CHLORIDE 0.9% 50ML 50 ML IV STA (22:49)
[2020-09-07 23:48] LABS: BASOPHILS # (AUTO) 0.1 (0.0-0.1); BASOPHILS % 0.7 % (0.0-1.0); EOSINOPHILS # (AUTO) 0.2 (0.0-0.4); EOSINOPHILS % 1.6 % (0.0-6.0); HEMATOCRIT 38.6 % (34.2-44.1); LYMPHOCYTES # (AUTO) 3.2 (1.0-3.2); LYMPHOCYTES % 31.2 % (18.0-39.1); MEAN CORPUSCULAR HEMOGLOBIN 29.8 pg (28-32); MEAN CORPUSCULAR HGB CONC 33.7 g/dL (31-35); MEAN CORPUSCULAR VOLUME 88.5 fL (81-99); MONOCYTES # (AUTO) 0.8 (0.2-0.8); MONOCYTES % 7.3 % (4.4-11.3); PLATELET COUNT 475 x10e3/uL (140-360); RED BLOOD COUNT 4.36 x10e6/uL (3.6-5.1); RED CELL DISTRIBUTION WIDTH 12.1 % (11.7-14.4)
[2020-09-07 23:54] LABS: CLARITY,URINE CLEAR (CLEAR); COLOR,URINE YELLOW (YELLOW); KETONES,URINE NEGATIVE (NEGATIVE); LEUKOCYTE ESTERASE ,URINE NEGATIVE (NEGATIVE); NITRITE,URINE NEGATIVE (NEGATIVE); PROTEIN,URINE DIPSTICK NEGATIVE (NEGATIVE); URINE UROBILINOGEN 1 mg/dL (0.2 - 1)
[2020-09-08 00:01] LABS: BACTERIA,URINE FEW /HPF; EPITHELIAL CELLS,URINE FEW /LPF; RBC,URINE 0-5 /HPF (0-5); WBC,URINE (MAN) 0-5 /HPF (0-5)
[2020-09-08 00:07] LABS: ALANINE AMINOTRANSFERASE 54 IU/L (0-55); ALBUMIN 3.7 g/dL (3.5-5.0); ALBUMIN/GLOBULIN RATIO 0.8 (0.8-2.0); ALKALINE PHOSPHATASE 120 IU/L (40-150); ANION GAP 14.8 mmol/L (8-16); BLOOD UREA NITROGEN 9 mg/dL (7-26); BUN/CREATININE RATIO 12 (6-25); CALCIUM 9.5 mg/dL (8.4-10.2); CARBON DIOXIDE 26 mmol/L (22-29); CHLORIDE 104 mmol/L (98-107); CREATININE, SERUM 0.74 mg/dL (0.57-1.11); EST GLOMERULAR FILTRATION RATE > 60 ML/MIN (60-); GLUCOSE 110 mg/dL (74-118); POTASSIUM 3.8 mmol/L (3.5-5.1); SODIUM 141 mmol/L (136-145)
[2020-09-08 02:45] VITALS: BP 122/78
[2020-09-08 03:00] VITALS: BP 122/78
[2020-09-08 06:27] LABS: BASOPHILS # (AUTO) 0.1 (0.0-0.1); BASOPHILS % 0.7 % (0.0-1.0); EOSINOPHILS # (AUTO) 0.2 (0.0-0.4); EOSINOPHILS % 2.2 % (0.0-6.0); HEMATOCRIT 34.6 % (34.2-44.1); HEMOGLOBIN 11.8 g/dL (12.0-16.0); LYMPHOCYTES # (AUTO) 2.8 (1.0-3.2); LYMPHOCYTES % 31.6 % (18.0-39.1); MEAN CORPUSCULAR HEMOGLOBIN 29.5 pg (28-32); MEAN CORPUSCULAR HGB CONC 34.1 g/dL (31-35); MEAN CORPUSCULAR VOLUME 86.5 fL (81-99); MONOCYTES # (AUTO) 0.7 (0.2-0.8); MONOCYTES % 7.5 % (4.4-11.3); NEUTROPHILS # (AUTO) 5.1 (2.1-6.9); NEUTROPHILS % 57.2 % (38.7-80.0); PLATELET COUNT 427 x10e3/uL (140-360); RED CELL DISTRIBUTION WIDTH 11.9 % (11.7-14.4)
[2020-09-08 06:46] LABS: ALANINE AMINOTRANSFERASE 48 IU/L (0-55); ALBUMIN 3.3 g/dL (3.5-5.0); ALBUMIN/GLOBULIN RATIO 0.8 (0.8-2.0); ALKALINE PHOSPHATASE 104 IU/L (40-150); ANION GAP 15.6 mmol/L (8-16); BLOOD UREA NITROGEN 11 mg/dL (7-26); BUN/CREATININE RATIO 15 (6-25); CALCIUM 8.7 mg/dL (8.4-10.2); CARBON DIOXIDE 24 mmol/L (22-29); CHLORIDE 104 mmol/L (98-107); CREATININE, SERUM 0.71 mg/dL (0.57-1.11); EST GLOMERULAR FILTRATION RATE > 60 ML/MIN (60-); GLUCOSE 109 mg/dL (74-118); POTASSIUM 3.6 mmol/L (3.5-5.1); SODIUM 140 mmol/L (136-145)
[2020-09-08 07:39] LABS: BAND NEUTROPHILS % (MANUAL) 1 %; EOSINOPHILS % (MANUAL) 2 % (0-7); LYMPHOCYTES % (MANUAL) 29 % (19-48); MONOCYTES % (MANUAL) 4 % (3.4-9.0); NEUTROPHILS % (MANUAL) 63 % (40-74)
[2020-09-08 07:40] LABS: PLATELET ESTIMATE ADEQUATE; PLATELET MORPHOLOGY COMMENT NORMAL; RBC MORPHOLOGY COMMENT NORMAL
[2020-09-08] MEDS ORDERED: SODIUM CHLORIDE 0.9% 1000ML 1,000 ML IV SCH (07:45)
[2020-09-08 08:35] VITALS: BP 110/79
[2020-09-08 08:51] VITALS: BP 110/79
[2020-09-08 12:01] VITALS: BP 115/78
[2020-09-08] MEDS ORDERED: MEROPENEM 1GM 100 ML IV SCH (14:00)
[2020-09-08] MEDS ORDERED: HYDROCODONE/APAP 5MG-325MG TAB PO PRN (15:15)
[2020-09-08] MEDS ORDERED: SODIUM CHLORIDE 0.9% 50ML 50 ML ONE (15:16)
[2020-09-08 15:48] VITALS: BP 120/80
[2020-09-08] MEDS ORDERED: METOPROLOL SUCCINATE 25 MG TAB XL PO SCH (21:00)
== END 2020-09-08 19:25 | disposition home or self-care (01) | DRG 689 ==
LOC: ER 22:51 → ERHOLD 23:27 → MED/SURG3 09-08 02:24
PROVIDERS: ADMIT Internal Medicine; ATTEND Internal Medicine
PROC: 02HV33Z Insertion of Infusion Device into Superior Vena Cava, Percutaneous Approach (ICD-10-PCS; principal; 2020-09-08)
DX: N12 Tubulo-interstitial nephritis, not specified as acute or chronic (principal); U07.1 COVID-19; Z16.12 Extended spectrum beta lactamase (ESBL) resistance; B96.20 Unspecified Escherichia coli [E. coli] as the cause of diseases classified elsewhere; R00.2 Palpitations
CPT/HCPCS: 36415; 36569; 71045; 80053; 81001; 85025; 87040; 87086; 99284; J0692; U0002